=== PATIENT | female | born 1970 | race African-American/Black ===

== ENCOUNTER 2016-07-21 09:01 | Emergency (ER) | payer BC ==
--- NOTE | 2016-07-21 11:03 | ER Document Report ---
ED General - General Chief Complaint: Pain All Over Stated Complaint: CONGESTION Mode of Arrival: Ambulatory Information source: Patient Notes: 45-year-old female presents with complaints of body aches flulike symptoms earache sore throat and productive yellow cough over the past few days. Patient denies any fevers or chills nausea vomiting or diarrhea. She has multiple sick contacts at work TRAVEL OUTSIDE OF THE [place] IN LAST 30 DAYS: No - HPI Onset: Last week Onset/Duration: Persistent Quality of pain: Achy Severity: Mild Pain Level: 1 Associated symptoms: Body/muscle aches, Productive cough, Shortness of breath Exacerbated by: Denies Relieved by: Denies Similar symptoms previously: No Recently seen / treated by doctor: No - Related Data Allergies/Adverse Reactions: No Known Allergies Allergy (Verified 07/21/16 09:10) Past Medical History - Social History Smoking Status: Never Smoker Cigarette use (# per day): No Chew tobacco use (# tins/day): No Smoking Education Provided: No Frequency of alcohol use: None Drug Abuse: None Family History: None Patient has suicidal ideation: No Patient has homicidal ideation: No Pulmonary Medical History: Denies: Hx Tuberculosis Renal/ Medical History: Denies: Hx Peritoneal Dialysis Past Surgical History: Reports: Hx Section - Immunizations Hx Pneumococcal Vaccination: 06/27/00 Review of Systems - Review of Systems Notes: REVIEW OF SYSTEMS: CONSTITUTIONAL : Denies fever, chills, or sweats. Denies recent illness. EENT: Admits to sore throa, ear ache CARDIOVASCULAR: Denies chest pain. Denies palpitations or racing or irregular heart beat. Denies ankle edema. RESPIRATORY: admit sto productive cough GASTROINTESTINAL: Denies abdominal pain or distention. Denies nausea, vomiting , or diarrhea. Denies blood in vomitus, stools, or per rectum. Denies black, tarry stools. Denies constipation. GENITOURINARY: Denies difficulty urinating, painful urination, burning, frequency, blood in urine, or discharge. FEMALE GENITOURINARY: Denies vaginal bleeding, heavy or abnormal periods, irregular periods. Denies vaginal discharge or odor. MUSCULOSKELETAL: Denies back or neck pain or stiffness. Denies joint pain or swelling. SKIN: Denies rash, lesions or sores. HEMATOLOGIC : Denies easy bruising or bleeding. LYMPHATIC: Denies swollen, enlarged glands. NEUROLOGICAL: Denies confusion or altered mental status. Denies passing out or loss of consciousness. Denies dizziness or lightheadedness. Denies headache. Denies weakness or paralysis or loss of use of either side. Denies problems with gait or speech. Denies sensory loss, numbness, or tingling. Denies seizures. PSYCHIATRIC: Denies anxiety or stress. Denies depression, suicidal ideation, or homicidal ideation. ALL OTHER SYSTEMS REVIEWED AND NEGATIVE. Dictation was performed using [email or web address] voice recognition software PHYSICAL EXAMINATION: GENERAL: Well-appearing, well-nourished and in no acute distress. HEAD: Atraumatic, normocephalic. EYES: Pupils equal round and reactive to light, extraocular movements intact, conjunctiva are normal. ENT: Nares patent, oropharynx clear without exudates. Moist mucous membranes. NECK: Normal range of motion, supple without lymphadenopathy LUNGS: Breath sounds clear to auscultation bilaterally and equal. No wheezes rales or rhonchi. after coughing but RUL rhonchi HEART: Regular rate and rhythm without murmurs ABDOMEN: Soft, nontender, nondistended abdomen. No guarding, no rebound. No masses appreciated. Female : deferred Musculoskeletal: Normal range of motion, no pitting or edema. No cyanosis. NEUROLOGICAL: Cranial nerves grossly intact. Normal speech, normal gait. Normal sensory, motor exams PSYCH: Normal mood, normal affect. SKIN: Warm, Dry, normal turgor, no rashes or lesions noted. Physical Exam - Vital signs Vitals: Temp Pulse Resp BP Pulse Ox 98.1 F 90 18 148/83 H 100 07/21/16 09:09 07/21/16 09:09 07/21/16 09:09 07/21/16 09:09 07/21/16 09:09 Course - Re-evaluation Re-evalutation: 07/21/16 11:00 influenza was negative pt will be treated for her productive cough, pt otherwise is stable for discharge 07/21/16 11:19 After performing a Medical Screening Examination, I estimate there is LOW risk for ACUTE CORONARY SYNDROME, RESPIRATORY FAILURE, SEPSIS OR MENINGITIS, thus I consider the discharge disposition reasonable. The patient and I have discussed the diagnosis and risks, and we agree with discharging home with close follow- up. We also discussed returning to the Emergency Department immediately if new or worsening symptoms occur. We have discussed the symptoms which are most concerning (e.g., changing or worsening pain, trouble swallowing or breathing, neck stiffness, fever) that necessitate immediate return. - Vital Signs Vital signs: Temp Pulse Resp BP Pulse Ox 98.1 F 90 18 148/83 H 100 07/21/16 09:09 07/21/16 09:09 07/21/16 09:09 07/21/16 09:09 07/21/16 09:09 Discharge - Discharge Clinical Impression: Productive cough, SOB (shortness of breath), Body aches Condition: Stable Disposition: HOME, SELF-CARE Instructions: Pneumonia ([facility]) Additional Instructions: Follow up with your physician tomorrow for further care or return to the ED IMMEDIATELY if symptoms worsen or new concerns occur Prescriptions: Azithromycin 250 mg PO ASDIR PRN #6 tablet PRN Reason:
[2016-07-21 17:58] VITALS: BP 136/80
== END 2016-07-21 11:45 | disposition home or self-care (01) ==
LOC: ER 09:01
DX: R05 Cough (principal); R06.02 Shortness of breath; M79.1 Myalgia; H92.09 Otalgia, unspecified ear; J02.9 Acute pharyngitis, unspecified
CPT/HCPCS: 87804; 99283

== ENCOUNTER 2016-10-26 21:43 | Observation (INO) | payer BC ==
[2016-10-26 22:54] LABS: ABSOLUTE EOSINOPHILS # (AUTO) 0.1 10^3/uL (0.0-0.6); ABSOLUTE LYMPHOCYTES (AUTO) 2.5 10^3/uL (0.5-4.7); ABSOLUTE MONOCYTES (AUTO) 0.5 10^3/uL (0.1-1.4); ABSOLUTE NEUT (AUTO) 2.9 10^3/uL (1.7-8.2); BASOPHILS % (AUTO) 0.6 % (0-2); HEMATOCRIT 22.2 % (36.0-47.0); LYMPHOCYTES % (AUTO) 41.1 % (13-45); MEAN CORPUSCULAR HEMOGLOBIN 16.8 pg (27.0-33.4); MEAN CORPUSCULAR HGB CONC 28.8 g/dL (32.0-36.0); MONOCYTES % (AUTO) 8.5 % (3-13); RED BLOOD COUNT 3.81 10^6/uL (3.72-5.28); RED CELL DISTRIBUTION WIDTH 22.2 % (11.5-14.0); SEGMENTED NEUTROPHILS % (AUTO) 47.8 % (42-78)
[2016-10-26 22:57] LABS: APPEARANCE,URINE SLIGHTLY-CLOUDY; BILIRUBIN,URINE NEGATIVE (NEGATIVE); GLUCOSE, URINE NEGATIVE (NEGATIVE); KETONES,URINE NEGATIVE (NEGATIVE); LEUKOCYTE ESTERASE,URINE NEGATIVE (NEGATIVE); NITRITE,URINE NEGATIVE (NEGATIVE); PROTEIN,URINE NEGATIVE (NEGATIVE); URINE SPECIFIC GRAVITY 1.015; UROBILINOGEN,URINE NEGATIVE mg/dL (<2.0)
[2016-10-26 22:59] LABS: HEMOGLOBIN 6.4 g/dL (12.0-15.5)
[2016-10-26 23:10] LABS: ANISOCYTOSIS 3+; HYPOCHROMASIA 2+; MICROCYTOSIS 4+; TOXIC GRANULATION SLIGHT
[2016-10-26 23:11] LABS: MEAN CORPUSCULAR VOLUME 58 fl (80-97); OVALOCYTES SLIGHT; TARGET CELLS SLIGHT
[2016-10-26 23:14] LABS: ALANINE AMINOTRANSFERASE 19 U/L (9-52); ALBUMIN 4.5 g/dL (3.5-5.0); ALKALINE PHOSPHATASE 62 U/L (38-126); ANION GAP 15 (5-19); ASPARTATE AMINO TRANSFERASE 21 U/L (14-36); BILIRUBIN,DIRECT 0.1 mg/dL (0.0-0.4); BILIRUBIN,TOTAL 0.3 mg/dL (0.2-1.3); BLOOD UREA NITROGEN 8 mg/dL (7-20); CALCIUM 9.6 mg/dL (8.4-10.2); CARBON DIOXIDE 26 mmol/L (22-30); CHLORIDE 104 mmol/L (98-107); GLUCOSE 99 mg/dL (75-110); POTASSIUM 3.8 mmol/L (3.6-5.0); SODIUM 145.2 mmol/L (137-145); TOTAL PROTEIN 8.1 g/dL (6.3-8.2)
[2016-10-27] MEDS ORDERED: NORMAL SALINE 250 ML IV PRN ×2 (00:08)
--- NOTE | 2016-10-27 00:08 | ER Document Report ---
ED General - General Chief Complaint: General Weakness Stated Complaint: WEAKNESS Mode of Arrival: Ambulatory Information source: Patient Notes: 45 yr old female with hx of dysmenorrhea , admission in 2013 for similar complaints but did not follow with [facility] at that point presents with complaints of weakness lightheadedness and eating ice. Patient currently is on the last day of her menses TRAVEL OUTSIDE OF THE [place] IN LAST 30 DAYS: Yes - [place] [facility] Onset: Other Onset/Duration: Persistent Quality of pain: No pain Severity: Moderate Pain Level: Denies Associated symptoms: Weakness Exacerbated by: Denies Relieved by: Denies Similar symptoms previously: Yes Recently seen / treated by doctor: Yes - Related Data Allergies/Adverse Reactions: No Known Allergies Allergy (Verified 07/21/16 09:10) Past Medical History - Social History Smoking Status: Never Smoker Cigarette use (# per day): No Chew tobacco use (# tins/day): No Smoking Education Provided: No Family History: None Patient has suicidal ideation: No Patient has homicidal ideation: No Pulmonary Medical History: Denies: Hx Tuberculosis Renal/ Medical History: Denies: Hx Peritoneal Dialysis Past Surgical History: Reports: Hx Section - Immunizations Hx Pneumococcal Vaccination: 06/27/00 Review of Systems - Review of Systems Notes: REVIEW OF SYSTEMS: CONSTITUTIONAL : Denies fever, chills, or sweats. Denies recent illness. EENT: Denies eye, ear, throat, or mouth pain or symptoms. Denies nasal or sinus congestion or discharge. Denies throat, tongue, or mouth swelling or difficulty swallowing. CARDIOVASCULAR: Denies chest pain. Denies palpitations or racing or irregular heart beat. Denies ankle edema. RESPIRATORY: Denies cough, cold, or chest congestion. Denies shortness of breath, difficulty breathing, or wheezing. GASTROINTESTINAL: Denies abdominal pain or distention. Denies nausea, vomiting , or diarrhea. Denies blood in vomitus, stools, or per rectum. Denies black, tarry stools. Denies constipation. GENITOURINARY: Denies difficulty urinating, painful urination, burning, frequency, blood in urine, or discharge. FEMALE GENITOURINARY: Admits to vaginal bleeding MUSCULOSKELETAL: Denies back or neck pain or stiffness. Denies joint pain or swelling. SKIN: Denies rash, lesions or sores. HEMATOLOGIC : Denies easy bruising or bleeding. LYMPHATIC: Denies swollen, enlarged glands. NEUROLOGICAL: Admits to weakness PSYCHIATRIC: Denies anxiety or stress. Denies depression, suicidal ideation, or homicidal ideation. ALL OTHER SYSTEMS REVIEWED AND NEGATIVE. Dictation was performed using [employer] voice recognition software PHYSICAL EXAMINATION: GENERAL: Well-appearing, well-nourished and in no acute distress. HEAD: Atraumatic, normocephalic. EYES: Pupils equal round and reactive to light, extraocular movements intact, conjunctiva are normal. ENT: Nares patent, oropharynx clear without exudates. Moist mucous membranes. NECK: Normal range of motion, supple without lymphadenopathy LUNGS: Breath sounds clear to auscultation bilaterally and equal. No wheezes rales or rhonchi. HEART: Regular rate and rhythm without murmurs ABDOMEN: Soft, nontender, nondistended abdomen. No guarding, no rebound. No masses appreciated. Female : deferred Musculoskeletal: Normal range of motion, no pitting or edema. No cyanosis. NEUROLOGICAL: Cranial nerves grossly intact. Normal speech, normal gait. Normal sensory, motor exams PSYCH: Normal mood, normal affect. SKIN: Warm, Dry, normal turgor, no rashes or lesions noted. Physical Exam - Vital signs Vitals: Temp Pulse Resp BP Pulse Ox 99 F 109 H 18 156/86 H 100 10/26/16 22:09 10/26/16 22:09 10/26/16 22:09 10/26/16 22:09 10/26/16 22:09 Course - Re-evaluation Re-evalutation: 10/27/16 00:21 Patient's hemoglobin is 6.4, 2 units have an order for transfusion, patient will be admitted to Dr. Newby - Vital Signs Vital signs: Temp Pulse Resp BP Pulse Ox 99 F 109 H 18 156/86 H 100 10/26/16 22:09 10/26/16 22:09 10/26/16 22:09 10/26/16 22:09 10/26/16 22:09 - Laboratory Result Diagrams: 10/26/16 22:35 10/26/16 22:35 Laboratory results interpreted by me: 10/26/16 10/26/16 10/26/16 22:35 22:35 22:35 Hgb 6.4 L Hct 22.2 L MCV 58 L MCH 16.8 L MCHC 28.8 L RDW 22.2 H Sodium 145.2 H Urine Blood LARGE H Critical Care Note - Critical Care Note Total time excluding time spent on procedures (mins): 35 Comments: 35 minutes of critical care time spent in direct contact evaluating and reevaluating the patient, treating symptoms, reviewing labs and studies and speaking with family and consultants excluding any procedures Discharge - Discharge Clinical Impression: Dysmenorrhea, Weakness, Blood loss anemia Condition: Fair Disposition: ADMITTED INPATIENT Admitting Provider: [facility] Admitted: Medical Floor
[2016-10-27] MEDS ORDERED: ACETAMINOPHEN 325 MG TABLET PO ONE ×2 (02:45→04:15)
[2016-10-27] MEDS ORDERED: DIPHENHYDRAMINE HCL 50 MG/ML VIAL IV ONE (02:45)
[2016-10-27] MEDS ORDERED: ESTROGENS,CONJUGATED 25 MG VIAL ONE (03:39)
[2016-10-27] MEDS: ESTROGENS,CONJUGATED 25 MG VIAL IV SCH ×3 (03:48→18:36)
--- NOTE | 2016-10-27 05:47 | PDOC H&P ---
History of Present Illness Admission Date/PCP: 10/27/16 00:25 Patient complains of: weakness and dizziness as a result of heavy vaginal bleeding that has been intermittent over the last 1 1/2 years. History of Present Illness: KEMI WANG is a 45 year old female Past Medical History LMP: 10-21-16 Gynecological Infection: No Gynecological History Note: as above Obstetrical History: none - c/sections x 3. Pulmonary Medical History: Denies: Tuberculosis Past Surgical History Past Surgical History: Reports: Section - x 3 Social History Smoking Status: Never Smoker Frequency of Alcohol Use: Occasional Hx Recreational Drug Use: No Drugs: None Hx Prescription Drug Abuse: No - Advance Directive Resuscitation Status: Full Code Family History Family History: None Parental Family History Reviewed: Yes Children Family History Reviewed: Yes Sibling(s) Family History Reviewed.: Yes Medication/Allergy Home Medications: No Home Medications 10/27/16 Allergies/Adverse Reactions: No Known Allergies Allergy (Verified 07/21/16 09:10) Physical Exam - Physical Exam Vital Signs: Temp Pulse Resp BP Pulse Ox 98.1 F 85 18 121/75 100 10/27/16 04:57 10/27/16 04:57 10/27/16 04:57 10/27/16 04:57 10/27/16 04:57 Intake & Output 10/25/16 10/26/16 10/27/16 06:59 06:59 06:59 Intake Total 0 Balance 0 General appearance: PRESENT: no acute distress GI/Abdominal exam: PRESENT: soft - obese Assessment & Plan - Diagnosis (1) Abnormal uterine and vaginal bleeding, unspecified Is this a current diagnosis for this admission?: Yes (2) Blood loss anemia Is this a current diagnosis for this admission?: Yes (3) Dysmenorrhea Is this a current diagnosis for this admission?: Yes (4) Weakness Is this a current diagnosis for this admission?: Yes - Time Critical Time spent with patient: Less than 15 minutes Medications reviewed and adjusted accordingly: Yes Anticipated discharge: Home Within: within 24 hours - Inpatient Certification Based on my medical assessment, after consideration of the patient's comorbidities, presenting symptoms, or acuity I expect that the services needed warrant INPATIENT care.: Yes I certify that my determination is in accordance with my understanding of Medicare's requirements for reasonable and necessary INPATIENT services [42 CFR 412.3e].: Yes Medical Necessity: Need Close Monitoring Due to Risk of Patient Decompensation, Need For IV Fluids, Risk of Complication if Not Cared For in Hospital - Plan Summary Plan Summary: will transfuse 3 units and recheck Hgb. IV Premarin to assist with decreasing blood loss. Will get pelvic sono while in hospital to assess uterine size. Will follow up in office and discuss further surgical management for AUB to anemia requiring transfusions.
[2016-10-27] MEDS ORDERED: FUROSEMIDE INJ/PF 20 MG/2 ML SDV IV PRN (11:50)
[2016-10-27 16:51] LABS: PATH REVIEW PATHOLOGIST REVIEWED
[2016-10-27 19:17] LABS: ABSOLUTE BASOPHILS # (AUTO) 0.1 10^3/uL (0.0-0.2); ABSOLUTE EOSINOPHILS # (AUTO) 0.2 10^3/uL (0.0-0.6); ABSOLUTE LYMPHOCYTES (AUTO) 1.7 10^3/uL (0.5-4.7); ABSOLUTE MONOCYTES (AUTO) 0.6 10^3/uL (0.1-1.4); ABSOLUTE NEUT (AUTO) 4.6 10^3/uL (1.7-8.2); BASOPHILS % (AUTO) 1.5 % (0-2); EOSINOPHILS % (AUTO) 2.3 % (0-6); HEMATOCRIT 31.2 % (36.0-47.0); HGB HCT DIFFERENCE -1.5; LYMPHOCYTES % (AUTO) 23.8 % (13-45); MEAN CORPUSCULAR HEMOGLOBIN 21.6 pg (27.0-33.4); MEAN CORPUSCULAR HGB CONC 31.8 g/dL (32.0-36.0); MONOCYTES % (AUTO) 8.5 % (3-13); RED CELL DISTRIBUTION WIDTH 31.8 % (11.5-14.0); SEGMENTED NEUTROPHILS % (AUTO) 63.9 % (42-78); WHITE BLOOD COUNT 7.2 10^3/uL (4.0-10.5)
[2016-10-27 19:19] LABS: HEMOGLOBIN 9.9 g/dL (12.0-15.5)
[2016-10-27 19:20] LABS: MEAN CORPUSCULAR VOLUME 68 fl (80-97)
[2016-10-27 19:36] LABS: ANISOCYTOSIS 3+; HYPOCHROMASIA 1+; MICROCYTOSIS 2+; OVALOCYTES SLIGHT; TARGET CELLS SLIGHT; TOXIC GRANULATION SLIGHT
[2016-10-27] MEDS ORDERED: ACETAMINOPHEN 325 MG TABLET ONE (21:18)
[2016-10-27] MEDS ORDERED: ACETAMINOPHEN 325 MG TABLET PO PRN (21:19)
[2016-10-27] MEDS ORDERED: MEDROXYPROGESTERONE ACET 10 MG TABLET PO ONE (22:00)
[2016-10-28 08:48] VITALS: BP 127/72
[2016-10-28] MEDS ORDERED: MEDROXYPROGESTERONE ACET 10 MG TABLET PO SCH (10:00)
== END 2016-10-28 10:30 | disposition home or self-care (01) ==
LOC: ER 21:43 → EH 10-27 00:25 → INTOOBSV 10-27 00:25 → 2N 10-27 02:00
PROVIDERS: ADMIT Obstetrics & Gynecology; ATTEND Obstetrics & Gynecology
PROC: 30243N1 Transfusion of Nonautologous Red Blood Cells into Central Vein, Percutaneous Approach (ICD-10-PCS; principal; 2016-10-27)
DX: N93.9 Abnormal uterine and vaginal bleeding, unspecified (principal); D50.0 Iron deficiency anemia secondary to blood loss (chronic); N94.6 Dysmenorrhea, unspecified; R53.1 Weakness; D25.9 Leiomyoma of uterus, unspecified; E66.9 Obesity, unspecified; Z68.38 Body mass index [BMI] 38.0-38.9, adult
CPT/HCPCS: 99291; 86900; 86901; 36415 ×2; 36430; 86850; 85025 ×2; 80053; 81001; 86920; 76830; 93976; G0378 ×3; P9016; J1200; J1410; J1940; J3490

== ENCOUNTER 2017-01-06 21:28 | Emergency (ER) | payer BC ==
--- NOTE | 2017-01-06 21:58 | ER Document Report ---
ED Dizziness/Weakness - General Mode of Arrival: Ambulatory Information source: Patient TRAVEL OUTSIDE OF THE [place] IN LAST 30 DAYS: Yes - [place] TRAVELED TO/FROM: [place] - HPI Patient complains to provider of: Dizziness, Weakness Onset: Other - Refer to HPI notes Associated symptoms: Dizzy <KELLY LINDSEY - Last Filed: 01/06/17 21:58> <KIM ROSAS - Last Filed: 01/06/17 23:15> - General Chief Complaint: Dizziness Stated Complaint: DIZZY, POSSIBLE LOW IRON Time Seen by Provider: 01/06/17 21:46 Notes: 46-year-old female presented emergency department for weakness and dizziness. Patient states the symptoms onset yesterday. Patient states she feels like she is going to pass out when she stands up. Patient has a history of anemia and has had previous blood transfusions and has been receiving iron infusions as well. Patient's last blood transfusion was on 10/27/2016 and her last iron transfusion was on 12/27/2016. Patient has been receiving her transfusions at [facility] with Dr. Art. Patient is currently on her menstrual cycle and she states it became heavy yesterday. Patient has no known drug allergies. (KELLY LINDSEY) - Related Data Allergies/Adverse Reactions: No Known Allergies Allergy (Verified 07/21/16 09:10) Past Medical History - General Information source: Patient - Social History Smoking Status: Never Smoker Cigarette use (# per day): No Chew tobacco use (# tins/day): No Frequency of alcohol use: None Drug Abuse: None Family History: None Patient has suicidal ideation: No Patient has homicidal ideation: No - Medical History Medical History: Other - anemia, blood and iron transfusions Past Surgical History: Reports: Hx Section - x 3 - Immunizations Hx Pneumococcal Vaccination: 06/27/00 <KELLY LINDSEY - Last Filed: 01/06/17 21:58> Review of Systems - Review of Systems Constitutional: See HPI, Weakness EENT: No symptoms reported Cardiovascular: See HPI, Dizziness Respiratory: No symptoms reported Gastrointestinal: No symptoms reported Genitourinary: No symptoms reported Female Genitourinary: See HPI, Last menstrual period - current Musculoskeletal: No symptoms reported Skin: No symptoms reported Hematologic/Lymphatic: See HPI, Anemia Neurological/Psychological: No symptoms reported -: Yes All other systems reviewed and negative <KELLY LINDSEY - Last Filed: 01/06/17 21:58> Physical Exam - Vital signs Interpretation: Hypertensive <KELLY LINDSEY - Last Filed: 01/06/17 21:58> <KIM ROSAS - Last Filed: 01/06/17 23:15> - Vital signs Vitals: Temp Pulse Resp BP Pulse Ox 98.1 F 98 18 150/97 H 99 01/06/17 21:35 01/06/17 21:35 01/06/17 21:35 01/06/17 21:35 01/06/17 21:35 - Notes Notes: GENERAL: Alert, interacts well. Patient has increased dizziness with moving her head up/down/left/right. No acute distress. HEAD: Normocephalic, atraumatic. EYES: Appear normal, conjunctiva is not pale. Pupils equal, round, and reactive to light. Extraocular movements intact, no nystagmus. ENT: Moist mucus membranes, tongue midline. NECK: Full range of motion. Supple. Trachea midline. LUNGS: Clear to auscultation bilaterally, no wheezes, rales, or rhonchi. No respiratory distress. HEART: Regular rate and rhythm. No murmurs, gallops, or rubs. ABDOMEN: Soft, non-tender. Non-distended. Normal bowel sounds. EXTREMITIES: Moves all 4 extremities spontaneously. Normal strength. No edema. NEUROLOGICAL: Alert and oriented x3. Normal speech. No focal neurological deficits. GSC 15. PSYCH: Normal affect, normal mood. SKIN: Warm, dry, normal turgor. No rashes or lesions noted. (KELLY LINDSEY) Course <KELLY LINDSEY - Last Filed: 01/06/17 21:58> - Laboratory Result Diagrams: 01/06/17 22:15 01/06/17 22:15 <KIM ROSAS - Last Filed: 01/06/17 23:15> - Re-evaluation Re-evalutation: 01/06/17 23:12 Patient reports the dizziness has improved since taking the Antivert. I had her look about rapidly and she noticed there is still some dizziness but is considerably better than earlier. Her hemoglobin today is 11.6, this is much higher than it has ever been recorded here. (KIM ROSAS) - Vital Signs Vital signs: Temp Pulse Resp BP Pulse Ox 98.1 F 98 18 150/97 H 99 01/06/17 21:35 01/06/17 21:35 01/06/17 21:35 01/06/17 21:35 01/06/17 21:35 - Laboratory Laboratory results interpreted by me: 01/06/17 01/06/17 22:15 22:15 Hgb 11.6 L MCH 26.7 L MCHC 31.5 L RDW 24.8 H Total Protein 8.4 H Discharge <KELLY LINDSEY - Last Filed: 01/06/17 21:58> <KIM ROSAS - Last Filed: 01/06/17 23:15> - Discharge Clinical Impression: Vertigo Heavy menstrual bleeding Qualifiers: Menorrahagia type: with regular cycle Qualified Code(s): N92.0 - Excessive and frequent menstruation with regular cycle Condition: Stable Disposition: HOME, SELF-CARE Additional Instructions: Vertigo: You have experienced an episode of vertigo -- a whirling dizziness which may be accompanied by nausea and vomiting or staggering. Vertigo is often caused by an irritation of the inner ear, in which case it is called labyrinthitis. It can also be a symptom of a degenerating inner ear, nerve damage, or brain injury. Your physician has evaluated you to determine whether any further testing is necessary. Vertigo is often treated with dramamine or meclizine. These medications are helpful, but stronger medication may be needed if you are vomiting. Rest in bed. You should not drive or operate machinery until completely better. It may take one to three weeks for recovery. If there are new symptoms, such as decreased hearing or vision, severe headache, weakness or faintness, or confusion, call the physician. TAKE THE MEDICATIONS PRESCRIBED. REST. FOLLOW UP WITH A LOCAL MEDICAL DOCTOR IF NOT IMPROVING. RETURN TO THE EMERGENCY ROOM IF ANY NEW OR WORSENING SYMPTOMS. Prescriptions: Meclizine HCl [Antivert 25 mg Tablet] 25 mg PO TID PRN #25 tablet PRN Reason: Scribe Attestation: 01/06/17 23:15 I personally performed the services described in the documentation, reviewed and edited the documentation which was dictated to the scribe in my presence, and it accurately records my words and actions. (KIM ROSAS) Scribe Documentation - Scribe Written by Scribe:: Bruce Llamas, 01/06/2017 22:05 acting as scribe for :: Aranza <KELLY LINDSEY - Last Filed: 01/06/17 21:58>
[2017-01-06] MEDS ORDERED: MECLIZINE HCL 25 MG TABLET PO ONE (21:59)
[2017-01-06 22:36] LABS: ABSOLUTE EOSINOPHILS # (AUTO) 0.2 10^3/uL (0.0-0.6); ABSOLUTE LYMPHOCYTES (AUTO) 1.4 10^3/uL (0.5-4.7); ABSOLUTE MONOCYTES (AUTO) 0.6 10^3/uL (0.1-1.4); BASOPHILS % (AUTO) 0.7 % (0-2); EOSINOPHILS % (AUTO) 2.9 % (0-6); HEMATOCRIT 36.8 % (36.0-47.0); HEMOGLOBIN 11.6 g/dL (12.0-15.5); MEAN CORPUSCULAR HEMOGLOBIN 26.7 pg (27.0-33.4); MEAN CORPUSCULAR HGB CONC 31.5 g/dL (32.0-36.0); MEAN CORPUSCULAR VOLUME 85 fl (80-97); MONOCYTES % (AUTO) 8.9 % (3-13); RED BLOOD COUNT 4.35 10^6/uL (3.72-5.28); RED CELL DISTRIBUTION WIDTH 24.8 % (11.5-14.0); SEGMENTED NEUTROPHILS % (AUTO) 64.5 % (42-78); WHITE BLOOD COUNT 6.3 10^3/uL (4.0-10.5)
[2017-01-06 22:47] LABS: ALANINE AMINOTRANSFERASE 31 U/L (9-52); ALBUMIN 4.3 g/dL (3.5-5.0); ALKALINE PHOSPHATASE 74 U/L (38-126); ANION GAP 11 (5-19); ASPARTATE AMINO TRANSFERASE 21 U/L (14-36); BILIRUBIN,DIRECT 0.3 mg/dL (0.0-0.4); BILIRUBIN,TOTAL 0.3 mg/dL (0.2-1.3); BLOOD UREA NITROGEN 10 mg/dL (7-20); CALCIUM 9.1 mg/dL (8.4-10.2); CARBON DIOXIDE 27 mmol/L (22-30); CHLORIDE 106 mmol/L (98-107); CREATININE RESULT 0.72 mg/dL (0.52-1.25); GLUCOSE 94 mg/dL (75-110); POTASSIUM 3.6 mmol/L (3.6-5.0); SODIUM 143.8 mmol/L (137-145); TOTAL PROTEIN 8.4 g/dL (6.3-8.2)
[2017-01-06 22:57] LABS: HYPOCHROMASIA SLIGHT
[2017-01-06 22:58] LABS: ANISOCYTOSIS 3+; OVALOCYTES SLIGHT; TARGET CELLS SLIGHT; TEAR DROP CELLS SLIGHT
[2017-01-06 23:00] LABS: POIKILOCYTOSIS SLIGHT
[2017-01-07 00:23] VITALS: BP 115/80
== END 2017-01-06 23:35 | disposition home or self-care (01) ==
LOC: ER 21:28
DX: N92.0 Excessive and frequent menstruation with regular cycle (principal); R42 Dizziness and giddiness; R53.1 Weakness
CPT/HCPCS: 36415; 80053; 85025; 86850; 86900; 86901; 99284

== ENCOUNTER 2017-01-27 09:05 | Inpatient (IN) | payer BC ==
[2017-01-19 10:32] LABS: HEMATOCRIT 36.3 % (36.0-47.0); HEMOGLOBIN 12.2 g/dL (12.0-15.5); HGB HCT DIFFERENCE 0.3; MEAN CORPUSCULAR HEMOGLOBIN 29.4 pg (27.0-33.4); MEAN CORPUSCULAR HGB CONC 33.7 g/dL (32.0-36.0); MEAN CORPUSCULAR VOLUME 87 fl (80-97); RED CELL DISTRIBUTION WIDTH 19.9 % (11.5-14.0)
[2017-01-19 10:38] LABS: APPEARANCE,URINE CLEAR; BILIRUBIN,URINE NEGATIVE (NEGATIVE); GLUCOSE, URINE NEGATIVE (NEGATIVE); KETONES,URINE NEGATIVE (NEGATIVE); LEUKOCYTE ESTERASE,URINE NEGATIVE (NEGATIVE); NITRITE,URINE NEGATIVE (NEGATIVE); PROTEIN,URINE NEGATIVE (NEGATIVE); URINE SPECIFIC GRAVITY 1.021; UROBILINOGEN,URINE NEGATIVE mg/dL (<2.0)
[2017-01-19 11:03] LABS: ALANINE AMINOTRANSFERASE 26 U/L (9-52); ALBUMIN 4.1 g/dL (3.5-5.0); ALKALINE PHOSPHATASE 76 U/L (38-126); ANION GAP 10 (5-19); ASPARTATE AMINO TRANSFERASE 26 U/L (14-36); BILIRUBIN,DIRECT 0.3 mg/dL (0.0-0.4); BILIRUBIN,TOTAL 0.4 mg/dL (0.2-1.3); BLOOD UREA NITROGEN 11 mg/dL (7-20); CALCIUM 9.2 mg/dL (8.4-10.2); CARBON DIOXIDE 25 mmol/L (22-30); CHLORIDE 106 mmol/L (98-107); GLUCOSE 74 mg/dL (75-110); POTASSIUM 3.9 mmol/L (3.6-5.0); SODIUM 141.2 mmol/L (137-145); TOTAL PROTEIN 7.7 g/dL (6.3-8.2)
[2017-01-19 11:15] LABS: RED BLOOD COUNT 4.16 10^6/uL (3.72-5.28)
[~2017-01-27 09:05] MED LIST: CEFAZOLIN 1 GM/D5W RTU 1 GM/50 ML RTUPB IV PRN; DEXAMETHASONE SOD PHOSPHATE INJ 4 MG/1 ML VIAL ONE; GLYCOPYRROLATE INJ 0.4 MG/2 ML VIAL ONE; LIDOCAINE 2% INJ-PF (20 MG/ML) 10 ML AMPUL ONE; ONDANSETRON HCL INJ/PF 4 MG/2 ML SDV ONE; RINGERS SOLUTION,LACTATED 1,000 ML IV PRN; ROCURONIUM BROMIDE INJ 50 MG/5 ML VIAL IV ONE; SUCCINYLCHOLINE CHLORIDE INJ 200 MG/10 ML VIAL ONE; VECURONIUM BROMIDE INJ 10 MG VIAL IV ONE
[2017-01-27] MEDS ORDERED: FENTANYL CITRATE INJ/PF 250 MCG/5 ML AMPULE ONE (12:13)
[2017-01-27] MEDS ORDERED: MIDAZOLAM 2 MG/2 ML INJ ONE (12:13)
[2017-01-27] MEDS ORDERED: PROPOFOL INJ 200 MG/20 ML VIAL IV ONE (12:14)
[2017-01-27] MEDS ORDERED: EPHEDRINE SULFATE INJ 50 MG/1 ML AMPULE ONE (12:14)
[2017-01-27] MEDS ORDERED: ACETAMINOPHEN 100 ML IV ONE (12:14)
[2017-01-27] MEDS ORDERED: MORPHINE SULFATE 10 MG/ML INJ ONE (12:15)
[2017-01-27] MEDS ORDERED: FENTANYL CITRATE INJ/PF 100 MCG/2 ML AMPUL IV PRN ×3 (14:33)
[2017-01-27] MEDS ORDERED: DIPHENHYDRAMINE HCL 50 MG/ML VIAL IV PRN (14:33)
[2017-01-27] MEDS ORDERED: PROMETHAZINE HCL INJ 25 MG/1 ML VIAL IV PRN (14:33)
[2017-01-27] MEDS ORDERED: MORPHINE SULFATE 10 MG/ML INJ IV PRN (14:33)
[2017-01-27] MEDS ORDERED: HYDROMORPHONE HCL INJ/PF 2 MG/ML AMPULE ONE (14:54)
[2017-01-27] MEDS ORDERED: ONDANSETRON HCL INJ/PF 4 MG/2 ML SDV ONE (17:22)
[2017-01-27] MEDS ORDERED: RINGERS SOLUTION,LACTATED 1,000 ML IV PRN (17:44)
--- NOTE | 2017-01-27 18:47 | OPERATIVE REPORT E ---
Operative Report NAME: KEMI WANG : 1970 AGE: 46Y DATE OF SURGERY: 01/27/2017 ROOM: PREOPERATIVE DIAGNOSES: 1. Abnormal uterine bleeding. 2. Anemia. 3. Chronic pelvic pain and pelvic adhesive disease. POSTOPERATIVE DIAGNOSES: 1. Abnormal uterine bleeding. 2. Anemia. 3. Chronic pelvic pain and pelvic adhesive disease. OPERATION: Total abdominal hysterectomy with right salpingo-oophorectomy and left salpingectomy. SURGEON: IZA POSADAS M.D. PRE OWNED SALES MANAGER: ALEX CAMACHO D.O. ANESTHESIA: Dr. Christie with general. FINDINGS: Enlarged fibroid uterus, enlarged to approximately 18 weeks' size. Significant pelvic wall adhesions of the uterus to the anterior abdominopelvic wall as well as significant adhesions of the right ovary necessitating its removal. Normal cervix. Dilated left fallopian tube. Normal left ovary. ESTIMATED BLOOD LOSS: 400 mL. TISSUE REMOVED OR ALTERED: Specimens removed were the uterus, fallopian tubes, and right ovary. PROCEDURE IN DETAIL: The patient was taken to the operating room, prepared and draped in a normal sterile fashion in the dorsal lithotomy position to attempt a laparoscopic-assisted hysterectomy. Under sterile conditions, a Rogel catheter was placed to gravity and a sterile speculum was placed in the vagina, and the cervix was grasped and dilated to accommodate a medium V-care which was placed. The gloves were changed, and then attention was then turned to the upper portion of the case where an umbilical skin incision was made and carried through to the underlying layer of fascia With Huynh's. The fascia was grasped and incised. With Huynh's as well, it extended laterally to accommodate a GelPort. A GelPort was placed, and the abdomen was insufflated with approximately 2 liters of CO2 gas. The chamber was introduced through the GelPort and with the above findings noted. Once the size of the uterus was assessed completely and the extent of the adhesions of the uterus to the rectus muscle, it was decided that an open case would be performed, so the abdomen was deflated and the GelPort was removed without difficulty. The patient was then repositioned supine and draped once more. The scalpel was used to score the skin following the patient's previous line, and this was carried through to the underlying layer of fascia with the same scalpel. The fascia was found to be extremely scarred as well and very, very tough to manage. The Huynh scissors were introduced to extend the fascia as best we could, and then this fascia was dissected from the rectus muscle with a Bovie until some type of midline could be identified. In the midline, we carefully layered the division of the midline using the Bovie as well as some blunt dissection in order to enter the peritoneal cavity. The peritoneal cavity was identified and then tented up and entered sharply with Metzenbaum's. The peritoneum was divided, and the bowel was held away using moist laparotomy sponges, and the uterus was identified and grasped with a towel clip for manipulation. I then called for Dr. Camacho to assist. Due to the extensiveness of the adhesions noted, I felt that another pair of hands would be beneficial. At this point, we began careful dissection of the right ovary and fallopian tube, and the right fallopian tube was removed using Huynh's after being tied off with an #0 Vicryl pop off. However, it was then noted the extensiveness of adhesions around this right ovary, and therefore the bleeding risk and the extensiveness of the adhesions, the right ovary was sacrificed by placing a LigaSure at the IP ligament and dividing the right ovary from its pedicle. Then turned our attention to the left adnexa. The left round ligament was identified, and this was transected using the LigaSure, and a window was created in the broad ligament to divide the utero-ovarian ligament from the uterus, and this was also done with 2 Loraine clamps and transected with Huynh's. The pedicle was then tied off with #0-Vicryl pop off. We then continued skeletonization of the uterine arteries using the LigaSure and blunt dissection as needed. We turned our attention then to the adhesions of the uterus to the anterior abdominal wall, taking care to watch for the bladder. These adhesions were taken down sharply with the Bovie and gentle traction as well as some gentle blunt dissection. Then continued with transection of the uterine arteries bilaterally using the LigaSure, doing our best to maintain hemostasis. The cervix was identified, and this was skeletonized as well using the LigaSure until we were underneath the cervix. Two sharply curved Loraine clamps were placed just beneath the cervix for the vaginal cuff. The uterus was then amputated from the cervix to allow for easier visualization. This was done with a 10-blade scalpel, and the cervix was grasped at its stump using two Allis clamps. The cervix was then transected using Yifan's following the guide of the previously placed right-angle clamps. The vaginal cuff was then closed with [id number] interrupted sutures of #0-Vicryl pop offs with good hemostasis. The peritoneal cavity was then copiously irrigated, and any bleeding was addressed with a Bovie or a stitch as needed. The sutures were cut at the vaginal cuff, and the fascia was closed with #0-Vicryl and the subcutaneous layer was then closed with plain cat gut and the skin was closed with willie. I then closed the fascia in a similar fashion at the umbilicus using #0-Vicryl and closing the skin with willie. The patient tolerated the procedure well. Sponge, lap, and needle counts were correct x2, and the patient was taken to recovery in stable condition. DICTATING PHYSICIAN: IZA POSADAS M.D. [id number] PHY#: [id number] ID: [id number] JOB#: [id number] ACCT: [id number] cc:IZA POSADAS M.D. >
[2017-01-27] MEDS: IBUPROFEN 800 MG TABLET PO PRN (20:03)
[2017-01-27] MEDS: OXYCODONE-ACETAMINOPHEN 5-325 MG TABLET PO PRN (21:23)
[2017-01-27] MEDS: ACETAMINOPHEN 100 ML IV SCH (22:31)
[2017-01-27] MEDS: KETOROLAC TROMETHAMINE INJ/PF 30 MG/1 ML SDV INJ SCH (22:40)
[2017-01-27] MEDS: MORPHINE SULFATE 10 MG/ML INJ IV PRN (23:54)
[2017-01-28] MEDS: IBUPROFEN 800 MG TABLET PO PRN (01:08)
[2017-01-28] MEDS: OXYCODONE-ACETAMINOPHEN 5-325 MG TABLET PO PRN ×3 (04:18→23:39)
[2017-01-28 05:38] LABS: HEMATOCRIT 28.7 % (36.0-47.0); HEMOGLOBIN 9.7 g/dL (12.0-15.5); HGB HCT DIFFERENCE 0.4; MEAN CORPUSCULAR HEMOGLOBIN 29.5 pg (27.0-33.4); MEAN CORPUSCULAR HGB CONC 33.9 g/dL (32.0-36.0); MEAN CORPUSCULAR VOLUME 87 fl (80-97); RED BLOOD COUNT 3.29 10^6/uL (3.72-5.28); WHITE BLOOD COUNT 9.3 10^3/uL (4.0-10.5)
[2017-01-28] MEDS: KETOROLAC TROMETHAMINE INJ/PF 30 MG/1 ML SDV INJ SCH ×2 (05:54→14:00)
[2017-01-28] MEDS: ACETAMINOPHEN 100 ML IV SCH (05:54)
[2017-01-28] MEDS ORDERED: DEXAMETHASONE SOD PHOSPHATE INJ 4 MG/1 ML VIAL ONE (08:08)
[2017-01-28] MEDS ORDERED: GLYCOPYRROLATE INJ 0.4 MG/2 ML VIAL ONE (08:08)
[2017-01-28] MEDS ORDERED: SUCCINYLCHOLINE CHLORIDE INJ 200 MG/10 ML VIAL ONE (08:08)
[2017-01-28] MEDS ORDERED: ROCURONIUM BROMIDE INJ 50 MG/5 ML VIAL IV ONE (08:08)
[2017-01-28] MEDS ORDERED: ONDANSETRON HCL INJ/PF 4 MG/2 ML SDV ONE (08:08)
[2017-01-28] MEDS ORDERED: NEOSTIGMINE METHYLSULFATE 10 MG/10 ML VIAL ONE (08:08)
[2017-01-28] MEDS: MORPHINE SULFATE 10 MG/ML INJ IV PRN (11:16)
--- NOTE | 2017-01-28 12:12 | PDOC PROGRESS REPORT ---
Subjective Progress Note for:: 01/28/17 Subjective:: called to pt's bs for evaluation of bleeding from incision. Per Dr. Kaiser, approx 60-80 cc of dark blood oozed from incision after saturated op site was removed. Bleeding had slowed just prior to my arrival. one staple was removed as it was falling off. Physical Exam - Physical Exam Vital Signs: Temp Pulse Resp BP Pulse Ox 98.5 F 114 H 16 127/82 H 100 01/28/17 04:10 01/28/17 04:10 01/28/17 04:10 01/28/17 04:10 01/28/17 04:10 Intake & Output 01/27/17 01/28/17 01/29/17 06:59 06:59 06:59 Intake Total 6050 320 Output Total 4750 300 Balance 1300 20 General appearance: PRESENT: no acute distress, cooperative Head exam: PRESENT: atraumatic GI/Abdominal exam: PRESENT: soft, tenderness, other - incision with moderate oozing on left side of incision. oozing of darkened blood. Result Laboratory Results: 01/28/17 05:11 01/19/17 10:00 01/28/17 05:11 WBC 9.3 RBC 3.29 L Hgb 9.7 L Hct 28.7 L MCV 87 MCH 29.5 MCHC 33.9 RDW 17.0 H Plt Count 231 Assessment & Plan - Diagnosis (1) Abnormal uterine and vaginal bleeding, unspecified Is this a current diagnosis for this admission?: Yes (2) Blood loss anemia Is this a current diagnosis for this admission?: Yes (3) Dysmenorrhea Is this a current diagnosis for this admission?: Yes (4) Weakness Is this a current diagnosis for this admission?: Yes - Time Time Spent with patient: 15-24 minutes Critical Time spent with patient: 15-24 minutes Anticipated discharge: Other - Inpatient Certification Based on my medical assessment, after consideration of the patient's comorbidities, presenting symptoms, or acuity I expect that the services needed warrant INPATIENT care.: Yes I certify that my determination is in accordance with my understanding of Medicare's requirements for reasonable and necessary INPATIENT services [42 CFR 412.3e].: Yes Medical Necessity: Need Close Monitoring Due to Risk of Patient Decompensation, Need for Pain Control, Need for Surgery - Plan Summary Plan Summary: pressure dressing applied and will monitor if pressure able to stop what is believed to be a interrupter vessel between muscle and fascia. if bleeding does not improve may need to take for surgical intervention to tie off or coagulate vessel and place a ANIL drain. this was discussed with pt who voices understanding. make NPO for now until reassured that bleeding is under control.
[2017-01-28] MEDS ORDERED: ONDANSETRON HCL INJ/PF 4 MG/2 ML SDV IV ONE (14:00)
[2017-01-28] MEDS ORDERED: CEFAZOLIN SODIUM 2 GM in DEXTROSE 5%-WATER 100 ML IV PRN (14:45)
[2017-01-28 15:57] LABS: HEMOGLOBIN 9.2 g/dL (12.0-15.5); HGB HCT DIFFERENCE 0.6; MEAN CORPUSCULAR HEMOGLOBIN 29.6 pg (27.0-33.4); MEAN CORPUSCULAR HGB CONC 33.9 g/dL (32.0-36.0); MEAN CORPUSCULAR VOLUME 87 fl (80-97); RED BLOOD COUNT 3.09 10^6/uL (3.72-5.28); RED CELL DISTRIBUTION WIDTH 16.5 % (11.5-14.0); WHITE BLOOD COUNT 9.8 10^3/uL (4.0-10.5)
[2017-01-28] MEDS ORDERED: FENTANYL CITRATE INJ/PF 250 MCG/5 ML AMPULE ONE (18:11)
[2017-01-28] MEDS ORDERED: MIDAZOLAM 2 MG/2 ML INJ ONE (18:11)
[2017-01-28] MEDS ORDERED: PROPOFOL INJ 200 MG/20 ML VIAL IV ONE (18:11)
[2017-01-28] MEDS ORDERED: MORPHINE SULFATE 10 MG/ML INJ ONE (18:12)
[2017-01-28] MEDS: CEFAZOLIN SODIUM 2 GM in DEXTROSE 5%-WATER 100 ML IV PRN ×2 (18:15→22:07)
[2017-01-28] MEDS ORDERED: PROMETHAZINE HCL INJ 25 MG/1 ML VIAL IV PRN ×2 (18:44)
[2017-01-28] MEDS ORDERED: DIPHENHYDRAMINE HCL 50 MG/ML VIAL IV PRN (18:44)
[2017-01-28] MEDS ORDERED: FENTANYL CITRATE INJ/PF 100 MCG/2 ML AMPUL IV PRN ×3 (18:44)
[2017-01-28] MEDS ORDERED: MORPHINE SULFATE 10 MG/ML INJ IV PRN ×2 (18:44→22:25)
[2017-01-28] MEDS ORDERED: OXYCODONE-ACETAMINOPHEN 5-325 MG TABLET PO PRN ×2 (18:44)
[2017-01-28] MEDS ORDERED: MEPERIDINE HCL/PF INJ 25 MG/1 ML DISP.SYRIN IV PRN (18:44)
[2017-01-28] MEDS: BUPIVACAINE HCL 0.25% /EPINEPHRINE INJ/PF 30 ML SDV ONE ×2 (18:47→19:16)
[2017-01-28] MEDS ORDERED: MICROFIBRILLAR COLLAGEN 1 GM PACK TP ONE (18:56)
[2017-01-28] MEDS ORDERED: MICROFIBRILLAR COLLAGEN 1 GM PACK ONE (18:57)
[2017-01-28] MEDS ORDERED: METOCLOPRAMIDE HCL INJ/PF 10 MG/2 ML SDV ONE (19:48)
[2017-01-28] MEDS ORDERED: IBUPROFEN 800 MG TABLET PO PRN ×2 (21:38→22:24)
[2017-01-28] MEDS ORDERED: RINGERS SOLUTION,LACTATED 1,000 ML IV PRN (22:26)
--- NOTE | 2017-01-29 09:57 | PDOC PROGRESS REPORT ---
Subjective Progress Note for:: 01/29/17 Subjective:: s/p GOLDIE w/ RSO POD #2 and exploratory lap POD #1 done sec to post op bleeding performed successfully. feeliing "much better" today. voiding, tolerating regular diet, +flatus. no nausea/vomiting. Physical Exam - Physical Exam Vital Signs: Temp Pulse Resp BP Pulse Ox 98.6 F 94 18 134/80 H 98 01/29/17 07:40 01/29/17 07:40 01/29/17 07:40 01/29/17 07:40 01/29/17 07:40 Intake & Output 01/28/17 01/29/17 01/30/17 06:59 06:59 06:59 Intake Total 6050 2120 Output Total 4750 3950 Balance 1300 -1830 General appearance: PRESENT: no acute distress, cooperative GI/Abdominal exam: PRESENT: soft - incision c/d/intact with minimal old blood on op site. no fresh/active bleeding. Result Laboratory Results: 01/28/17 15:34 01/19/17 10:00 01/28/17 15:34 WBC 9.8 RBC 3.09 L Hgb 9.2 L Hct 27.0 L MCV 87 MCH 29.6 MCHC 33.9 RDW 16.5 H Plt Count 214 Assessment & Plan - Diagnosis (1) Abnormal uterine and vaginal bleeding, unspecified Is this a current diagnosis for this admission?: Yes (2) Blood loss anemia Is this a current diagnosis for this admission?: Yes (3) Dysmenorrhea Is this a current diagnosis for this admission?: Yes (4) Weakness Is this a current diagnosis for this admission?: Yes - Inpatient Certification Based on my medical assessment, after consideration of the patient's comorbidities, presenting symptoms, or acuity I expect that the services needed warrant INPATIENT care.: Yes I certify that my determination is in accordance with my understanding of Medicare's requirements for reasonable and necessary INPATIENT services [42 CFR 412.3e].: Yes Medical Necessity: Need Close Monitoring Due to Risk of Patient Decompensation, Need for Pain Control, Risk of Complication if Not Cared For in Hospital - Plan Summary Plan Summary: will continue to monitor for next 24 hours. if remains stable and no further bleeding will d/c in AM with regular instructions.
[2017-01-29 12:03] LABS: HEMATOCRIT 24.6 % (36.0-47.0); HEMOGLOBIN 8.3 g/dL (12.0-15.5); HGB HCT DIFFERENCE 0.3; MEAN CORPUSCULAR HEMOGLOBIN 29.3 pg (27.0-33.4); MEAN CORPUSCULAR HGB CONC 33.6 g/dL (32.0-36.0); MEAN CORPUSCULAR VOLUME 87 fl (80-97); RED BLOOD COUNT 2.82 10^6/uL (3.72-5.28); RED CELL DISTRIBUTION WIDTH 16.4 % (11.5-14.0); WHITE BLOOD COUNT 11.4 10^3/uL (4.0-10.5)
[2017-01-29] MEDS: OXYCODONE-ACETAMINOPHEN 5-325 MG TABLET PO PRN ×2 (14:56→18:30)
[2017-01-29] MEDS: SIMETHICONE 80 MG TAB.CHEW PO PRN (22:15)
[2017-01-30] MEDS: OXYCODONE-ACETAMINOPHEN 5-325 MG TABLET PO PRN (01:40)
[2017-01-30] MEDS: SIMETHICONE 80 MG TAB.CHEW PO PRN (08:27)
--- NOTE | 2017-01-30 09:07 | PDOC DISCHARGE SUMMARY ---
General - Admit/Disc Date/PCP Admission Date/Primary Care Provider: 01/27/17 09:05 Discharge Date: 01/30/17 - Discharge Diagnosis (1) Abnormal uterine and vaginal bleeding, unspecified Is this a current diagnosis for this admission?: Yes (2) Blood loss anemia Is this a current diagnosis for this admission?: Yes (3) Dysmenorrhea Is this a current diagnosis for this admission?: Yes (4) Weakness Is this a current diagnosis for this admission?: Yes - Additional Information Resuscitation Status: Full Code Home Medications: No Home Medications 01/19/17 History of Present Illness History of Present Illness: KEMI WANG is a 46 year old female Hospital Course Hospital Course: underwent GOLDIE RSO and then had ex lap for Post op bleeding next day. Pt is doing very well. +flatus, no n/v. ambulating well. Physical Exam - Physical Exam Vital Signs: Temp Pulse Resp BP Pulse Ox 98.3 F 85 15 127/84 H 96 01/30/17 08:12 01/30/17 08:12 01/30/17 08:12 01/30/17 08:12 01/30/17 08:12 Intake & Output 01/29/17 01/30/17 01/31/17 06:59 06:59 06:59 Intake Total 2120 990 Output Total 3950 Balance -1830 990 General appearance: PRESENT: no acute distress GI/Abdominal exam: PRESENT: soft, tenderness - tenderness at incision sites. minimal old drainage on dressing. Result Laboratory Results: 01/29/17 11:32 01/19/17 10:00 01/29/17 11:32 WBC 11.4 H RBC 2.82 L Hgb 8.3 L Hct 24.6 L MCV 87 MCH 29.3 MCHC 33.6 RDW 16.4 H Plt Count 223 Plan Discharge Plan: discharge home with scheduled f/u in office on
[2017-01-30 10:36] VITALS: BP 123/74
== END 2017-01-30 11:10 | disposition home or self-care (01) | DRG 743 ==
LOC: 2N 09:05 → OROUT 09:05 → EDSTATUS 11:00 → OROUT 18:14 → 2N 18:14 → EDSTATUS 01-28 11:00 → 2N 01-28 13:22 → OROUT 01-28 13:22 → 2N 01-28 13:24 → UNDOADMIN 01-28 13:24
PROVIDERS: ADMIT Obstetrics & Gynecology; ATTEND Obstetrics & Gynecology
PROC: 0UTC0ZZ Resection of Cervix, Open Approach (ICD-10-PCS; 2017-01-27)
PROC: 0UB70ZZ Excision of Bilateral Fallopian Tubes, Open Approach (ICD-10-PCS; 2017-01-27)
PROC: 0UT00ZZ Resection of Right Ovary, Open Approach (ICD-10-PCS; 2017-01-27)
PROC: 0UT90ZZ Resection of Uterus, Open Approach (ICD-10-PCS; principal; 2017-01-27 11:00)
DX: D25.1 Intramural leiomyoma of uterus (principal); N93.8 Other specified abnormal uterine and vaginal bleeding; N94.6 Dysmenorrhea, unspecified; N73.6 Female pelvic peritoneal adhesions (postinfective); D50.9 Iron deficiency anemia, unspecified; N92.6 Irregular menstruation, unspecified; Z79.899 Other long term (current) drug therapy
CPT/HCPCS: 36415; 80053; 81001; 81025; 840; 85027; 85610; 85730; 86850; 86900; 86901; 88307; J0131; J0330; J0690; J1100; J1170; J1885; J2250; J2270; J2405; J2704; J2765; J3010; J3490; J7120

== ENCOUNTER 2017-05-11 21:41 | Emergency (ER) | payer BC ==
[2017-05-11 23:01] LABS: ABSOLUTE EOSINOPHILS # (AUTO) 0.1 10^3/uL (0.0-0.6); ABSOLUTE LYMPHOCYTES (AUTO) 2.5 10^3/uL (0.5-4.7); ABSOLUTE MONOCYTES (AUTO) 0.5 10^3/uL (0.1-1.4); ABSOLUTE NEUT (AUTO) 4.5 10^3/uL (1.7-8.2); BASOPHILS % (AUTO) 0.5 % (0-2); EOSINOPHILS % (AUTO) 1.6 % (0-6); HEMATOCRIT 41.2 % (36.0-47.0); HEMOGLOBIN 14.1 g/dL (12.0-15.5); HGB HCT DIFFERENCE 1.1; LYMPHOCYTES % (AUTO) 32.4 % (13-45); MEAN CORPUSCULAR HEMOGLOBIN 28.2 pg (27.0-33.4); MEAN CORPUSCULAR HGB CONC 34.2 g/dL (32.0-36.0); MEAN CORPUSCULAR VOLUME 82 fl (80-97); MONOCYTES % (AUTO) 6.7 % (3-13); RED CELL DISTRIBUTION WIDTH 14.9 % (11.5-14.0); SEGMENTED NEUTROPHILS % (AUTO) 58.8 % (42-78); WHITE BLOOD COUNT 7.6 10^3/uL (4.0-10.5)
[2017-05-11 23:17] LABS: APPEARANCE,URINE SLIGHTLY-CLOUDY; BILIRUBIN,URINE NEGATIVE (NEGATIVE); GLUCOSE, URINE NEGATIVE (NEGATIVE); KETONES,URINE NEGATIVE (NEGATIVE); LEUKOCYTE ESTERASE,URINE MODERATE (NEGATIVE); NITRITE,URINE NEGATIVE (NEGATIVE); PROTEIN,URINE NEGATIVE (NEGATIVE)
[2017-05-11 23:18] LABS: ALANINE AMINOTRANSFERASE 29 U/L (9-52); ALBUMIN 4.7 g/dL (3.5-5.0); ALKALINE PHOSPHATASE 88 U/L (38-126); ANION GAP 13 (5-19); ASPARTATE AMINO TRANSFERASE 18 U/L (14-36); BILIRUBIN,DIRECT 0.4 mg/dL (0.0-0.4); BILIRUBIN,TOTAL 0.4 mg/dL (0.2-1.3); BLOOD UREA NITROGEN 8 mg/dL (7-20); CARBON DIOXIDE 26 mmol/L (22-30); CHLORIDE 107 mmol/L (98-107); CREATININE RESULT 0.73 mg/dL (0.52-1.25); GLUCOSE 85 mg/dL (75-110); LIPASE 119.1 U/L (23-300); POTASSIUM 3.8 mmol/L (3.6-5.0); SODIUM 146.4 mmol/L (137-145); TOTAL PROTEIN 8.5 g/dL (6.3-8.2)
[2017-05-12] MEDS ORDERED: IBUPROFEN 600 MG TABLET PO ONE (00:53)
--- NOTE | 2017-05-12 00:53 | ER Document Report ---
ED General - General Chief Complaint: Abdominal Pain Stated Complaint: ABDOMINAL PAIN Time Seen by Provider: 05/11/17 23:56 Notes: Patient is a 46-year-old female status post total abdominal hysterectomy 3 months ago who presents with abdominal pain. Patient states that she has had chronic abdominal wall soreness and discomfort since the surgery and typically requires a supportive chair in order to prevent recurrence of this pain. Patient states that she just sat in a chair today at work and that it abruptly went into a reclined position causing her to abruptly tense her abdominal wall. She states that since that time she has felt as though she has pulled a muscle in her abdominal wall. She notes a dull, constant, throbbing pain to the central abdomen. Moving worsens the pain. She has not tried anything to improve the pain. She states this is very similar to when she is irritated this area of musculature in the past. She has not seen her primary care doctor regarding today's concerns. She denies any fever, constitutional symptoms or vomiting. No vaginal bleeding or discharge. TRAVEL OUTSIDE OF THE [place] IN LAST 30 DAYS: No - Related Data Allergies/Adverse Reactions: No Known Allergies Allergy (Verified 05/11/17 21:53) Past Medical History - General Information source: Patient - Social History Smoking Status: Never Smoker Frequency of alcohol use: None Drug Abuse: None Lives with: Family Family History: Reviewed & Not Pertinent Patient has suicidal ideation: No Patient has homicidal ideation: No Pulmonary Medical History: Denies: Hx Tuberculosis Renal/ Medical History: Denies: Hx Ovarian Cysts, Hx Peritoneal Dialysis, Hx Pelvic Inflammatory Disease Malignancy Medical History: Denies: Hx Breast Cancer, Hx Cervical Cancer, Hx Leukemia, Hx Ovarian Cancer Infectious Medical History: Denies: Hx HIV Past Surgical History: Reports: Hx Section - X3. Denies: Hx Appendectomy, Hx Bowel Surgery, Hx Cholecystectomy, Hx Coronary Artery Bypass Graft, Hx Gastric Bypass Surgery, Hx Herniorrhaphy, Hx Hysterectomy, Hx Mastectomy, Hx Pacemaker, Hx Tonsillectomy, Hx Tubal Ligation - Immunizations Hx Pneumococcal Vaccination: 06/27/00 Review of Systems - Review of Systems Notes: Constitutional: Negative for fever. HENT: Negative for sore throat. Eyes: Negative for visual changes. Cardiovascular: Negative for chest pain. Respiratory: Negative for shortness of breath. Gastrointestinal: Positive for abdominal pain Genitourinary: Negative for dysuria. Musculoskeletal: Negative for back pain. Skin: Negative for rash. Neurological: Negative for headaches, weakness or numbness. 10 point ROS negative except as marked above and in HPI. Physical Exam - Vital signs Vitals: Temp Pulse Resp BP Pulse Ox 98.4 F 93 18 145/93 H 98 05/11/17 21:53 05/11/17 21:53 05/11/17 21:53 05/11/17 21:53 05/11/17 21:53 Interpretation: Normal Notes: PHYSICAL EXAMINATION: GENERAL: Well-appearing, well-nourished and in no acute distress. HEAD: Atraumatic, normocephalic. EYES: Pupils equal round and reactive to light, extraocular movements intact, sclera anicteric, conjunctiva are normal. ENT: nares patent, oropharynx clear without exudates. Moist mucous membranes. NECK: Normal range of motion, supple without lymphadenopathy LUNGS: Breath sounds clear to auscultation bilaterally and equal. No wheezes rales or rhonchi. HEART: Regular rate and rhythm without murmurs ABDOMEN: Soft, nontender, normoactive bowel sounds. No guarding, no rebound. No masses appreciated. EXTREMITIES: Normal range of motion, no pitting or edema. No cyanosis. NEUROLOGICAL: No focal neurological deficits. Moves all extremities spontaneously and on command. PSYCH: Normal mood, normal affect. SKIN: Warm, Dry, normal turgor, no rashes or lesions noted. Course - Re-evaluation Re-evalutation: 05/12/17 00:48 Patient presents with an abdominal wall strain after she states that she reclined at a rapid speed and a office chair. She has had this disc comfort since having a complete hysterectomy and notes that generally she does well unless she has similar events today. Her abdominal exam is benign without any focal areas of tenderness. Labs obtained in triage are unremarkable. Her clinical history is not consistent with any acute life-threatening pathology including acute appendicitis, bowel obstruction, biliary pathology or acute pancreatitis. No believe any medical imaging is indicated at this time given clinical history examination. I have recommended NSAIDs, heat, and follow-up as needed. At this time will discharge with return precautions and follow-up recommendations. Verbal discharge instructions given a the bedside and opportunity for questions given. Medication warnings reviewed. Patient is in agreement with this plan and has verbalized understanding of return precautions and the need for primary care follow-up in the next 24-72 hours. - Vital Signs Vital signs: Temp Pulse Resp BP Pulse Ox 98.7 F 85 16 127/73 H 98 05/12/17 01:11 05/12/17 01:11 05/12/17 01:11 05/12/17 01:11 05/12/17 01:11 - Laboratory Result Diagrams: 05/11/17 22:50 05/11/17 22:50 Laboratory results interpreted by me: 05/11/17 05/11/17 05/11/17 22:50 22:50 22:50 RDW 14.9 H Sodium 146.4 H Total Protein 8.5 H Urine Urobilinogen 2.0 H Ur Leukocyte Esterase MODERATE H Discharge - Discharge Clinical Impression: Abdominal wall strain Qualifiers: Encounter type: initial encounter Qualified Code(s): S39.011A - Strain of muscle, fascia and tendon of abdomen, initial encounter Condition: Good Disposition: HOME, SELF-CARE Additional Instructions: Please take ibuprofen 600 mg every 6 hours as needed for discomfort. You may apply heat to the affected area. You also been sent home with a muscle relaxant , Flexeril which may use as needed for discomfort that is not controlled by ibuprofen although please be cautious as this is very sedating medication should generally be only used at night. Return if you develop persistent vomiting, worsening pain, or any other symptoms that are worrisome to you. Prescriptions: Cyclobenzaprine HCl [Flexeril 10 mg Tablet] 10 mg PO QHS PRN #15 tablet PRN Reason: Forms: Return to Work
[2017-05-12 01:12] VITALS: BP 127/73
== END 2017-05-12 01:11 | disposition home or self-care (01) ==
LOC: ER 21:41
DX: S39.011A Strain of muscle, fascia and tendon of abdomen, initial encounter (principal); X50.0XXA Overexertion from strenuous movement or load, initial encounter; Y99.0 Civilian activity done for income or pay; R10.9 Unspecified abdominal pain; Z90.710 Acquired absence of both cervix and uterus
CPT/HCPCS: 36415; 80053; 81001; 81025; 83690; 85025; 99284

== ENCOUNTER 2017-10-11 08:08 | Outpatient (CLI) | payer BC ==
[~2017-10-11 08:08] MED LIST changes: -CEFAZOLIN 1 GM/D5W RTU 1 GM/50 ML RTUPB IV PRN; -DEXAMETHASONE SOD PHOSPHATE INJ 4 MG/1 ML VIAL ONE; +FERRIC CARBOXYMALTOSE 750 MG in NORMAL SALINE 250 ML IV PRN; -GLYCOPYRROLATE INJ 0.4 MG/2 ML VIAL ONE; -LIDOCAINE 2% INJ-PF (20 MG/ML) 10 ML AMPUL ONE; +NORMAL SALINE 250 ML IV PRN; -ONDANSETRON HCL INJ/PF 4 MG/2 ML SDV ONE; -RINGERS SOLUTION,LACTATED 1,000 ML IV PRN; -ROCURONIUM BROMIDE INJ 50 MG/5 ML VIAL IV ONE; -SUCCINYLCHOLINE CHLORIDE INJ 200 MG/10 ML VIAL ONE; -VECURONIUM BROMIDE INJ 10 MG VIAL IV ONE
[2017-10-11 09:50] VITALS: BP 133/87
== END 2017-10-11 09:53 | disposition home or self-care (01) ==
LOC: II 08:08 → 5TH 08:10 → II 09:53
PROVIDERS: ATTEND Internal Medicine
PROC: 3E033GC Introduction of Other Therapeutic Substance into Peripheral Vein, Percutaneous Approach (ICD-10-PCS; principal; 2017-10-11)
DX: D50.8 Other iron deficiency anemias (principal); K90.9 Intestinal malabsorption, unspecified
CPT/HCPCS: 96365; J7050; J1439

== ENCOUNTER 2017-10-18 08:13 | Outpatient (CLI) | payer BC ==
[2017-10-18 08:51] VITALS: BP 130/86
== END 2017-10-18 10:19 | disposition home or self-care (01) ==
LOC: II 08:13 → 5TH 08:15 → II 10:19
PROVIDERS: ATTEND Internal Medicine
PROC: 3E033GC Introduction of Other Therapeutic Substance into Peripheral Vein, Percutaneous Approach (ICD-10-PCS; principal; 2017-10-18)
DX: D50.8 Other iron deficiency anemias (principal); K90.9 Intestinal malabsorption, unspecified
CPT/HCPCS: 96365; J7050; J1439

== ENCOUNTER 2018-01-04 21:58 | Emergency (ER) | payer BC | END 2018-01-05 01:37 | disposition left against medical advice (07) | LOC: ER 21:58 | DX: Z53.21 Procedure and treatment not carried out due to patient leaving prior to being seen by health care provider (principal) ==

== ENCOUNTER 2018-01-06 23:41 | Emergency (ER) | payer BC ==
--- NOTE | 2018-01-07 02:24 | RADIOLOGY REPORT (SQ) ---
EXAM DESCRIPTION: 3 views of the right foot January 07, 2018 CLINICAL HISTORY: 47 years, Female, trauma COMPARISON: None. FINDINGS: There is no acute fracture or dislocation. The bony alignment is normal. There is diffuse soft tissue swelling overlying the forefoot and midfoot which is most pronounced dorsally. The tarsal, metatarsal, and phalangeal bones are normal in appearance. There is calcaneal enthesopathy at the plantar fascia insertion. IMPRESSION: 1. No acute fracture or dislocation. 2. Soft tissue swelling. 3. Calcaneal enthesopathy.
--- NOTE | 2018-01-07 02:43 | ER Document Report ---
ED General - General Chief Complaint: Swelling of Lower Extremity Stated Complaint: SWOLLEN FEET Time Seen by Provider: 01/07/18 00:58 Notes: Patient is a 47-year-old female who presents with complaint of swollen feet. Patient says this been ongoing for last month. She says that when she sleeps at night her swelling goes away. She says she then goes to work. At work she sits at a desk all day. She says but never worked in her feet are swollen again. She saw her doctor who did x-rays of her legs and then placed her on a week's worth of Lasix. Her doctor told her that her swelling continues and she should go to the ER. She denies any chest pain. No shortness of breath. No fevers. No history of congestive heart failure. No other complaints at this time. TRAVEL OUTSIDE OF THE [place] IN LAST 30 DAYS: No - Related Data Allergies/Adverse Reactions: No Known Allergies Allergy (Verified 05/11/17 21:53) Past Medical History - Social History Smoking Status: Never Smoker Frequency of alcohol use: None Drug Abuse: None Family History: Reviewed & Not Pertinent Patient has suicidal ideation: No Patient has homicidal ideation: No Pulmonary Medical History: Denies: Hx Tuberculosis Renal/ Medical History: Denies: Hx Ovarian Cysts, Hx Peritoneal Dialysis, Hx Pelvic Inflammatory Disease Malignancy Medical History: Denies: Hx Breast Cancer, Hx Cervical Cancer, Hx Leukemia, Hx Ovarian Cancer Infectious Medical History: Denies: Hx HIV Past Surgical History: Reports: Hx Section - X3. Denies: Hx Appendectomy, Hx Bowel Surgery, Hx Cholecystectomy, Hx Coronary Artery Bypass Graft, Hx Gastric Bypass Surgery, Hx Herniorrhaphy, Hx Hysterectomy, Hx Mastectomy, Hx Pacemaker, Hx Tonsillectomy, Hx Tubal Ligation - Immunizations Hx Pneumococcal Vaccination: 06/27/00 Review of Systems - Review of Systems Notes: My Normal Review Basic REVIEW OF SYSTEMS: CONSTITUTIONAL : Denies fever, chills, or sweats. Denies recent illness. CARDIOVASCULAR: Denies chest pain. RESPIRATORY: Denies cough, cold, or chest congestion. Denies shortness of breath, difficulty breathing, or wheezing. GASTROINTESTINAL: Denies abdominal pain. Denies nausea, vomiting, or diarrhea. MUSCULOSKELETAL: Pedal edema SKIN: Denies rash or skin lesions. NEUROLOGICAL: Denies altered mental status or loss of consciousness. Denies headache. Denies weakness or paralysis or loss of use of either side. Denies problems with gait or speech. Denies sensory or motor loss. ALL OTHER SYSTEMS REVIEWED AND NEGATIVE. Physical Exam - Vital signs Vitals: Temp Pulse Resp BP Pulse Ox 99.1 F 91 18 132/74 H 99 01/06/18 23:59 01/06/18 23:59 01/06/18 23:59 01/06/18 23:59 01/06/18 23:59 - Notes Notes: General Appearance: Well nourished, alert, cooperative, no acute distress, no obvious discomfort. Well-appearing. Vitals: reviewed, See vital signs table. Head: no swelling or tenderness to the head Eyes: PERRL, EOMI, Conjuctiva clear Mouth: No decreasd moisture Lungs: No wheezing, No rales, No rhonci, No accessory muscle use, good air exchange bilaterally. Heart: Normal rate, Regular rythm, No murmur, no rub Extremities: strength 5/5 in all extremities, good pulses in all extremities, no swelling or tenderness in the extremities with exception of some pain over the middle toe on the right foot. Patient says when she is walking yesterday she caught her sandals on the rug and it caused her to go to bed back. Significant bruising., 2+ pedal edema bilaterally. Skin: warm, dry, appropriate color, no rash Neuro: speech clear, oriented x 3, normal affect, responds appropriately to questions. Course - Re-evaluation Re-evalutation: 01/07/18 04:20 Patient has what appears to be gravity dependent edema. Has been very hot this month and I am sure that his also causing edema to be worse than usual. I talked to patient length about the need to wear compression stockings. I encouraged her to wear these throughout the day. Encourage her then to have her legs elevated at nighttime. I encouraged her to return to the ER if she has worsening swelling, any difficulty breathing, any chest pain, or if she feels unwell. Patient agrees with plan will be discharged home. Dictation of this chart was performed using voice recognition software; therefore, there may be some unintended grammatical errors. - Vital Signs Vital signs: Temp Pulse Resp BP Pulse Ox 97.7 F 79 14 118/101 H 98 01/07/18 02:48 01/07/18 02:48 01/07/18 02:48 01/07/18 02:48 01/07/18 02:48 Discharge - Discharge Clinical Impression: Pedal edema Condition: Good Disposition: HOME, SELF-CARE Additional Instructions: Please return to the immediately if you develop difficulty breathing, worsening swelling, or feel unwell. please go to the drug store and buy compression stockings. Wear these every day. When at home please keep your legs elevated and elevate them on pillows when sleeping at night.
[2018-01-07 03:57] VITALS: BP 118/101
== END 2018-01-07 03:01 | disposition home or self-care (01) ==
LOC: ER 23:41
DX: R60.0 Localized edema (principal)
CPT/HCPCS: 99283

== ENCOUNTER 2018-02-20 09:16 | Emergency (ER) | payer BC ==
[2018-02-20] MEDS ORDERED: DIPHENHYDRAMINE HCL 50 MG/ML VIAL IV ONE (09:44)
[2018-02-20] MEDS ORDERED: PROCHLORPERAZINE EDISYLATE INJ 10 MG/2 ML VIAL IV ONE (09:44)
--- NOTE | 2018-02-20 09:47 | ER Document Report ---
ED Medical Screen (RME) - General Chief Complaint: Headache Stated Complaint: HEADACHE Time Seen by Provider: 02/20/18 09:36 Notes: 47-year-old female to emergency department chief complaint of headache for approximately 3-4 days. No sudden onset. Has had a headache in the past very similar to this but also having symptoms of feeling like she is going to pass out. Having lower extremity edema. Has a history of iron deficiency anemia. Had iron infusion in October and never has had blood work done since that time. Feels more tired than usual. No fever or chills. No neck pain or stiffness. Was at work today and felt like she was going to pass out so came here for evaluation. Headache located on the left side of her head with some occasional numbness on the left side of her face. I have greeted and performed a rapid initial assessment of this patient. A comprehensive ED assessment and evaluation of the patient, analysis of test results and completion of the medical decision making process will be conducted by additional ED providers. TRAVEL OUTSIDE OF THE [place] IN LAST 30 DAYS: No - Related Data Allergies/Adverse Reactions: No Known Allergies Allergy (Verified 02/20/18 09:17) Past Medical History Pulmonary Medical History: Denies: Hx Tuberculosis Renal/ Medical History: Denies: Hx Ovarian Cysts, Hx Peritoneal Dialysis, Hx Pelvic Inflammatory Disease Malignancy Medical History: Denies: Hx Breast Cancer, Hx Cervical Cancer, Hx Leukemia, Hx Ovarian Cancer Infectious Medical History: Denies: Hx HIV Past Surgical History: Reports: Hx Section - X3. Denies: Hx Appendectomy, Hx Bowel Surgery, Hx Cholecystectomy, Hx Coronary Artery Bypass Graft, Hx Gastric Bypass Surgery, Hx Herniorrhaphy, Hx Hysterectomy, Hx Mastectomy, Hx Pacemaker, Hx Tonsillectomy, Hx Tubal Ligation Physical Exam - Vital signs Vitals: Temp Pulse Resp BP Pulse Ox 98.2 F 78 18 147/86 H 100 02/20/18 09:25 02/20/18 09:25 02/20/18 09:25 02/20/18 09:25 02/20/18 09:25 Course - Vital Signs Vital signs: Temp Pulse Resp BP Pulse Ox 98.2 F 78 18 147/86 H 100 02/20/18 09:25 02/20/18 09:25 02/20/18 09:25 02/20/18 09:25 02/20/18 09:25
--- NOTE | 2018-02-20 10:31 | ER Document Report ---
ED Headache - General Chief Complaint: Headache Stated Complaint: HEADACHE Time Seen by Provider: 02/20/18 09:36 Mode of Arrival: Ambulatory Information source: Patient Notes: Patient presents complaining of left-sided headache pain for the past 3-4 days. Patient states that rest will help the headache and it will go away but then comes back. Patient does complain of nausea and feeling fatigued. Patient denies any fever or neck pain. Patient does state that she has felt faint today and states that she has had lower extremity edema. Patient does report having peripheral edema in the past but states that this is persisting today. Patient denies any chest pain or shortness of breath. Patient denies any previous history of DVT or PE. TRAVEL OUTSIDE OF THE [place] IN LAST 30 DAYS: No - HPI Patient complains to provider of: Headache Patient reports: Occasional migraines Onset: Other - 3 days Onset was: Gradual Timing: Still present Quality of pain: Achy Pain Level: 4 Associated symptoms: Lightheaded, Nausea/vomiting - nausea, Photophobia. denies : Dizzy, Motor/sensory loss to arm, Neck pain, Speech problems, Stiff neck Exacerbated by: Light Similar symptoms previously: Yes Recently seen / treated by doctor: No - Related Data Allergies/Adverse Reactions: No Known Allergies Allergy (Verified 02/20/18 09:17) Past Medical History - General Information source: Patient - Social History Smoking Status: Never Smoker Frequency of alcohol use: None Drug Abuse: None Occupation: call center Lives with: Family Family History: Reviewed & Not Pertinent Patient has suicidal ideation: No Patient has homicidal ideation: No - Medical History Medical History: Other - anemia Pulmonary Medical History: Denies: Hx Tuberculosis Neurological Medical History: Reports: Other - headaches Renal/ Medical History: Denies: Hx Ovarian Cysts, Hx Peritoneal Dialysis, Hx Pelvic Inflammatory Disease Malignancy Medical History: Denies: Hx Breast Cancer, Hx Cervical Cancer, Hx Leukemia, Hx Ovarian Cancer Infectious Medical History: Denies: Hx HIV Past Surgical History: Reports: Hx Section - X3 - Immunizations Hx Pneumococcal Vaccination: 06/27/00 Review of Systems - Review of Systems Constitutional: Other - fatigue. denies: Fever, Recent illness EENT: No symptoms reported Cardiovascular: Lightheaded. denies: Chest pain Respiratory: No symptoms reported. denies: Cough, Short of breath Gastrointestinal: Nausea. denies: Abdominal pain, Vomiting Genitourinary: No symptoms reported Female Genitourinary: No symptoms reported Musculoskeletal: Leg swelling - bilat. denies: Back pain, Neck pain Skin: No symptoms reported. denies: Rash Hematologic/Lymphatic: No symptoms reported Neurological/Psychological: Headaches. denies: Confusion, Weakness, Lost consciousness Physical Exam - Vital signs Vitals: Temp Pulse Resp BP Pulse Ox 98.2 F 78 18 147/86 H 100 02/20/18 09:25 02/20/18 09:25 02/20/18 09:25 02/20/18 09:25 02/20/18 09:25 - General General appearance: Appears well, Alert In distress: None - HEENT Head: Normocephalic, Atraumatic Eyes: Normal Conjunctiva: Normal Extraocular movements intact: Yes Pupils: PERRL Ears: Normal External canal: Normal Tympanic membrane: Normal Nasal: Normal Mouth/Lips: Normal Mucous membranes: Normal Pharynx: Normal Neck: Normal, Supple. No: Lymphadenopathy, Meningismus - Respiratory Respiratory status: No respiratory distress Chest status: Nontender Breath sounds: Normal. No: Rales, Rhonchi, Stridor, Wheezing Chest palpation: Normal - Cardiovascular Rhythm: Regular Heart sounds: S1 appreciated, S2 appreciated Pulses: Normal: Dorsalis pedis - Abdominal Inspection: Obese Distension: No distension Bowel sounds: Normal Tenderness: Nontender - Back Back: Normal, Nontender. No: Vertebra tenderness - Extremities General upper extremity: Normal inspection, Normal ROM General lower extremity: Nontender, Edema - 2+bilat LE from mid tibia distally, Normal ROM - Neurological Neuro grossly intact: Yes Cognition: Normal Milena Coma Scale Eye Opening: Spontaneous Mcroberts Coma Scale Verbal: Oriented Milena Coma Scale Motor: Obeys Commands Mcroberts Coma Scale Total: 15 - Psychological Associated symptoms: Normal affect, Normal mood - Skin Skin Temperature: Warm Skin Moisture: Dry Skin Color: Normal Course - Re-evaluation Re-evalutation: 02/20/18 13:19 Patient reports headache pain is down to 2 out of 5 scale. Patient is eating lunch. Patient states that nausea is improved. Patient complains of increased fatigue after medications. 02/20/18 15:34 Patient resting with eyes closed, states headache pain is resolved at this time. Patient without any nausea or vomiting. Patient without any chest pain or dyspnea. She denies feeling any lightheadedness or dizziness. Patient's blood specimen hemolyzed yet again. Discussed with patient results that we do have back. Patient defers additional blood draws attempts at this time and prefers to follow-up on an outpatient basis with a primary doctor and cardiology for further evaluation. Patient advised that provider would be happy to have lab come and redraw patient so that we could get definitive results on her chemistry panel. Patient declines. Patient did have a negative troponin cycled and had EKG without findings worrisome for acute ischemic changes. Patient without any dyspnea symptoms and breath sounds are clear bilaterally. Patient reports previous history of dependent edema. No concern for DVT or PE at this time. The patient presents with headache without signs of DATA OPERATIONS LEADER bleed, stroke, infection, or other serious etiology. The patient is neurologically intact. Given the extremely low risk of these diagnoses further testing and evaluation for these possibilities does not appear to be indicated at this time. The patient has been instructed to return if the symptoms worsen or change in any way. 02/20/18 15:37 - Vital Signs Vital signs: Temp Pulse Resp BP Pulse Ox 98.2 F 78 15 134/80 H 100 02/20/18 09:25 02/20/18 09:25 02/20/18 15:00 02/20/18 15:00 02/20/18 15:00 - Laboratory Result Diagrams: 02/20/18 12:02 02/20/18 12:02 Laboratory results interpreted by me: 02/20/18 14:18 Urine Urobilinogen 4.0 H Labs- Entire Visit 02/20/18 02/20/18 02/20/18 12:02 12:02 12:02 WBC 8.0 RBC 4.68 Hgb 14.2 Hct 41.5 MCV 89 MCH 30.4 MCHC 34.3 RDW 12.7 Plt Count 267 Seg Neutrophils % 70.2 Lymphocytes % 20.6 Monocytes % 7.7 Eosinophils % 0.6 Basophils % 0.9 Absolute Neutrophils 5.6 Absolute Lymphocytes 1.7 Absolute Monocytes 0.6 Absolute Eosinophils 0.1 Absolute Basophils 0.1 Sodium Cancelled Potassium Cancelled Chloride Cancelled Carbon Dioxide Cancelled Anion Gap Cancelled BUN Cancelled Creatinine Cancelled Est GFR ( Amer) Cancelled Est GFR (Non-Af Amer) Cancelled Glucose Cancelled Calcium Cancelled Total Bilirubin Cancelled Direct Bilirubin Cancelled Neonat Total Bilirubin Cancelled Neonat Direct Bilirubin Cancelled Neonat Indirect Bili Cancelled AST Cancelled ALT Cancelled Alkaline Phosphatase Cancelled Troponin I Cancelled NT-Pro-B Natriuret Pep Cancelled Total Protein Cancelled Albumin Cancelled Serum HCG, Qual Urine Color Urine Appearance Urine pH Ur Specific Adams Urine Protein Urine Glucose (UA) Urine Ketones Urine Blood Urine Nitrite Urine Bilirubin Urine Urobilinogen Ur Leukocyte Esterase Urine WBC (Auto) Urine RBC (Auto) Urine Bacteria (Auto) Squamous Epi Cells Auto Urine Mucus (Auto) Urine Ascorbic Acid 02/20/18 02/20/18 02/20/18 12:02 13:47 13:47 WBC RBC Hgb Hct MCV MCH MCHC RDW Plt Count Seg Neutrophils % Lymphocytes % Monocytes % Eosinophils % Basophils % Absolute Neutrophils Absolute Lymphocytes Absolute Monocytes Absolute Eosinophils Absolute Basophils Sodium Potassium Chloride Carbon Dioxide Anion Gap BUN Creatinine Est GFR ( Amer) Est GFR (Non-Af Amer) Glucose Calcium Total Bilirubin Direct Bilirubin Neonat Total Bilirubin Not Reportable Neonat Direct Bilirubin Not Reportable Neonat Indirect Bili Not Reportable AST ALT Alkaline Phosphatase Troponin I NT-Pro-B Natriuret Pep Total Protein Albumin Serum HCG, Qual Cancelled Cancelled Urine Color Urine Appearance Urine pH Ur Specific Adams Urine Protein Urine Glucose (UA) Urine Ketones Urine Blood Urine Nitrite Urine Bilirubin Urine Urobilinogen Ur Leukocyte Esterase Urine WBC (Auto) Urine RBC (Auto) Urine Bacteria (Auto) Squamous Epi Cells Auto Urine Mucus (Auto) Urine Ascorbic Acid 02/20/18 02/20/18 02/20/18 13:47 14:18 14:34 WBC RBC Hgb Hct MCV MCH MCHC RDW Plt Count Seg Neutrophils % Lymphocytes % Monocytes % Eosinophils % Basophils % Absolute Neutrophils Absolute Lymphocytes Absolute Monocytes Absolute Eosinophils Absolute Basophils Sodium Potassium Chloride Carbon Dioxide Anion Gap BUN Creatinine Est GFR ( Amer) Est GFR (Non-Af Amer) Glucose Calcium Total Bilirubin Direct Bilirubin Neonat Total Bilirubin Neonat Direct Bilirubin Neonat Indirect Bili AST ALT Alkaline Phosphatase Troponin I < 0.012 NT-Pro-B Natriuret Pep 60 Total Protein Albumin Serum HCG, Qual NEGATIVE Urine Color YELLOW Urine Appearance CLEAR Urine pH 6.0 Ur Specific Adams 1.017 Urine Protein NEGATIVE Urine Glucose (UA) NEGATIVE Urine Ketones NEGATIVE Urine Blood NEGATIVE Urine Nitrite NEGATIVE Urine Bilirubin NEGATIVE Urine Urobilinogen 4.0 H Ur Leukocyte Esterase NEGATIVE Urine WBC (Auto) 3 Urine RBC (Auto) 0 Urine Bacteria (Auto) TRACE Squamous Epi Cells Auto 4 Urine Mucus (Auto) RARE Urine Ascorbic Acid NEGATIVE Discharge - Discharge Clinical Impression: Light-headed feeling Headache Qualifiers: Headache type: unspecified Headache chronicity pattern: unspecified pattern Intractability: not intractable Qualified Code(s): R51 - Headache Condition: Stable Disposition: HOME, SELF-CARE Instructions: Intravenous Compazine for Headaches ([facility]), Use of Diphenhydramine , Family Physicians / Practices, Headache ([facility]) Additional Instructions: Return immediately for any new or worsening symptoms Followup with your primary care provider, call tomorrow to make a followup appointment Follow-up with a build technician for further evaluation, call tomorrow for an appointment Be sure to eat regularly spaced meals Prescriptions: Butalb/Acetaminophen/Caffeine [Fioricet (50-325-40 mg) Tablet] 1 - 2 tab PO Q4H #15 each Forms: Return to Work Referrals: [facility] [Provider Group] - Follow up as needed LASHAWN BROWNE MD [ACTIVE STAFF] - Follow up tomorrow
[2018-02-20] MEDS ORDERED: NORMAL SALINE 1000 ML 1,000 ML IV ONE (11:22)
[2018-02-20 12:14] LABS: ABSOLUTE BASOPHILS # (AUTO) 0.1 10^3/uL (0.0-0.2); ABSOLUTE EOSINOPHILS # (AUTO) 0.1 10^3/uL (0.0-0.6); ABSOLUTE LYMPHOCYTES (AUTO) 1.7 10^3/uL (0.5-4.7); ABSOLUTE MONOCYTES (AUTO) 0.6 10^3/uL (0.1-1.4); ABSOLUTE NEUT (AUTO) 5.6 10^3/uL (1.7-8.2); BASOPHILS % (AUTO) 0.9 % (0-2); EOSINOPHILS % (AUTO) 0.6 % (0-6); HEMATOCRIT 41.5 % (36.0-47.0); HEMOGLOBIN 14.2 g/dL (12.0-15.5); LYMPHOCYTES % (AUTO) 20.6 % (13-45); MEAN CORPUSCULAR HEMOGLOBIN 30.4 pg (27.0-33.4); MEAN CORPUSCULAR HGB CONC 34.3 g/dL (32.0-36.0); MEAN CORPUSCULAR VOLUME 89 fl (80-97); MONOCYTES % (AUTO) 7.7 % (3-13); PLATELET COUNT 267 10^3/uL (150-450); RED BLOOD COUNT 4.68 10^6/uL (3.72-5.28); RED CELL DISTRIBUTION WIDTH 12.7 % (11.5-14.0); SEGMENTED NEUTROPHILS % (AUTO) 70.2 % (42-78); TOTAL CELLS COUNTED % (AUTO) 100 %
--- NOTE | 2018-02-20 13:09 | EKG REPORT ---
SEVERITY:- ABNORMAL ECG - SINUS RHYTHM LEFT ATRIAL ABNORMALITY NONSPECIFIC ST-T CHANGES- INFERIOR LEADS : Confirmed by: Regis Mccallum MD 20-Feb-2018 13:08:11
[2018-02-20] MEDS ORDERED: KETOROLAC TROMETHAMINE INJ/PF 30 MG/1 ML SDV IV ONE (13:18)
[2018-02-20] MEDS ORDERED: DEXAMETHASONE SOD PHOS INJ 10 MG/1 ML VIAL IV ONE (13:19)
[2018-02-20 14:30] LABS: NT PRO BNP 60 pg/mL (<125)
[2018-02-20 14:31] LABS: APPEARANCE,URINE CLEAR; BILIRUBIN,URINE NEGATIVE (NEGATIVE); COLOR,URINE YELLOW; GLUCOSE, URINE NEGATIVE (NEGATIVE); KETONES,URINE NEGATIVE (NEGATIVE); LEUKOCYTE ESTERASE,URINE NEGATIVE (NEGATIVE); NITRITE,URINE NEGATIVE (NEGATIVE); PROTEIN,URINE NEGATIVE (NEGATIVE); URINE SPECIFIC GRAVITY 1.017
[2018-02-20 14:35] LABS: TROPONIN I < 0.012 ng/mL
[2018-02-20 15:15] VITALS: BP 134/80
== END 2018-02-20 17:46 | disposition home or self-care (01) ==
LOC: ER 09:16
DX: R51 Headache (principal); R42 Dizziness and giddiness; R11.2 Nausea with vomiting, unspecified; R53.83 Other fatigue
CPT/HCPCS: 93005; 99284; 96361; 96374; 96375; 36415; 84703; 85025; 81001; 84484; 83880; 93010; J1200; J1885; J0780; J7030; J1100

== ENCOUNTER 2018-05-22 13:14 | Emergency (ER) | payer BC ==
[2018-05-22 13:39] VITALS: BP 138/99
--- NOTE | 2018-05-22 14:36 | ER Document Report ---
ED Medical Screen (RME) - General Chief Complaint: Abdominal Pain Stated Complaint: ABDOMNAL PAIN Time Seen by Provider: 05/22/18 14:31 Notes: 47-year-old female patient with 3-day history of upper abdominal pain which on exam seems to be predominantly the right upper quadrant. Pain is mostly constant, there is some nausea without vomiting. Patient had a hysterectomy in 2017. He does have a history of heartburn. I have greeted and performed a rapid initial assessment of this patient. A comprehensive ED assessment and evaluation of the patient, analysis of test results and completion of the medical decision making process will be conducted by additional ED providers. TRAVEL OUTSIDE OF THE [place] IN LAST 30 DAYS: No - Related Data Allergies/Adverse Reactions: No Known Allergies Allergy (Verified 02/20/18 09:17) Past Medical History Pulmonary Medical History: Denies: Hx Tuberculosis Renal/ Medical History: Denies: Hx Ovarian Cysts, Hx Peritoneal Dialysis, Hx Pelvic Inflammatory Disease Malignancy Medical History: Denies: Hx Breast Cancer, Hx Cervical Cancer, Hx Leukemia, Hx Ovarian Cancer Infectious Medical History: Denies: Hx HIV Past Surgical History: Reports: Hx Section - X3. Denies: Hx Appendectomy, Hx Bowel Surgery, Hx Cholecystectomy, Hx Coronary Artery Bypass Graft, Hx Gastric Bypass Surgery, Hx Herniorrhaphy, Hx Hysterectomy, Hx Mastectomy, Hx Pacemaker, Hx Tonsillectomy, Hx Tubal Ligation Physical Exam - Vital signs Vitals: Temp Pulse Resp BP Pulse Ox 97.8 F 85 18 138/99 H 97 05/22/18 13:35 05/22/18 13:35 05/22/18 13:35 05/22/18 13:35 05/22/18 13:35 Course - Vital Signs Vital signs: Temp Pulse Resp BP Pulse Ox 97.8 F 85 18 138/99 H 97 05/22/18 13:35 05/22/18 13:35 05/22/18 13:35 05/22/18 13:35 05/22/18 13:35
--- NOTE | 2018-05-22 15:33 | ER Document Report ---
ED General - General Chief Complaint: Abdominal Pain Stated Complaint: ABDOMNAL PAIN Time Seen by Provider: 05/22/18 14:31 TRAVEL OUTSIDE OF THE [place] IN LAST 30 DAYS: No - HPI Notes: Patient is a 47-year-old female with a history of hysterectomy who presents to the ED complaining of right-sided abdominal pain times 3 days. Patient states that the pain has been relatively constant, but increasing in intensity. Patient states that the pain does not radiate. She is still able to eat and drink, but does have a decreased p.o. intake. She has not noticed any worsening pain with p.o. intake. She is urinating normally and having normal bowel movements, but states that she does feel somewhat constipated which is not unremarkable for her. Denies any drug allergies. No other surgical history to her abdomen. Last bowel movement was this morning. Denies any headache, fever, URI, sore throat, chest pain, palpitations, syncope, cough, shortness of breath, wheeze, dyspnea, nausea/vomiting/diarrhea, urinary retention, dysuria, hematuria, vaginal discharge/odor/bleeding, back pain, loss of control of bowel or bladder, numbness/tingling, saddle anesthesia, muscle paralysis/weakness, or rash. - Related Data Allergies/Adverse Reactions: No Known Allergies Allergy (Verified 02/20/18 09:17) Past Medical History - Social History Smoking Status: Never Smoker Frequency of alcohol use: None Drug Abuse: None Family History: Reviewed & Not Pertinent Patient has suicidal ideation: No Patient has homicidal ideation: No Pulmonary Medical History: Denies: Hx Tuberculosis Neurological Medical History: Reports: Hx Migraine Renal/ Medical History: Denies: Hx Ovarian Cysts, Hx Peritoneal Dialysis, Hx Pelvic Inflammatory Disease Malignancy Medical History: Denies: Hx Breast Cancer, Hx Cervical Cancer, Hx Leukemia, Hx Ovarian Cancer Infectious Medical History: Denies: Hx HIV Past Surgical History: Reports: Hx Section - X3, Hx Hysterectomy. Denies: Hx Appendectomy, Hx Bowel Surgery, Hx Cholecystectomy, Hx Coronary Artery Bypass Graft, Hx Gastric Bypass Surgery, Hx Herniorrhaphy, Hx Mastectomy , Hx Pacemaker, Hx Tonsillectomy, Hx Tubal Ligation - Immunizations Hx Pneumococcal Vaccination: 06/27/00 Review of Systems - Review of Systems -: Yes All other systems reviewed and negative Physical Exam - Vital signs Vitals: Temp Pulse Resp BP Pulse Ox 97.8 F 85 18 138/99 H 97 05/22/18 13:35 05/22/18 13:35 05/22/18 13:35 05/22/18 13:35 05/22/18 13:35 - Notes Notes: PHYSICAL EXAMINATION: GENERAL: Well-appearing, well-nourished and in no acute distress. Eyes: anicteric. LUNGS: Breath sounds clear to auscultation bilaterally and equal. No wheezes rales or rhonchi. HEART: Regular rate and rhythm without murmurs, rubs, gallops. ABDOMEN: Soft, nondistended abdomen. No guarding, no rebound. No masses appreciated. Normal bowel sounds present. No CVA tenderness bilaterally. Obese. + tenderness near McBurney and mild tenderness to RUQ. No lower pelvic tenderness. Musculoskeletal: FROM to passive/active. Strength 5+/5. Extremities: No cyanosis, clubbing, or edema b/l. Peripheral pulses 2+. Capillary refill less than 3 seconds. NEUROLOGICAL: Normal speech, normal gait. Normal sensory, motor exams PSYCH: Normal mood, normal affect. SKIN: Warm, Dry, normal turgor, no rashes or lesions noted. Course - Re-evaluation Re-evalutation: 05/22/18 16:29 Patient is an afebrile, well-hydrated, 47-year-old female who presents to the ED with abdominal pain unspecified, possible constipation related. Vitals are acceptable without any significant tachycardia, tachypnea, or hypoxia. PE is otherwise unremarkable. CBC, CMP, Lipase, Urinalysis and hCG are unremarkable for any acute pathology. CT unremarkable for acute process, but moderate stool present. Patient is nontoxic-appearing is tolerating p.o. without any difficulties. No other labs or imaging warranted at this time based on H&P. Low suspicion/risk for acute appendicitis, bowel obstruction, acute cholecystitis, acute cholangitis, perforated diverticulitis, incarcerated hernia , pancreatitis, perforated ulcer, peritonitis, sepsis, pelvic inflammatory disease, ectopic , tubo-ovarian abscess, ovarian torsion, or other systemic emergent condition at this time. Patient is aware that her condition can change from initial presentation and she needs to monitor symptoms closely and seek medical attention if any acute changes. I will send her home with prescription for mag citrate. Conservative measures otherwise for symptoms. Recheck with your PCM/OBGYN in 3-5 days. Return to the ED with any worsening/ concerning symptoms otherwise as reviewed in discharge. Patient is in agreement. - Vital Signs Vital signs: Temp Pulse Resp BP Pulse Ox 97.8 F 85 18 138/99 H 97 05/22/18 13:35 05/22/18 13:35 05/22/18 13:35 05/22/18 13:35 05/22/18 13:35 - Laboratory Result Diagrams: 05/22/18 15:39 05/22/18 15:39 Laboratory results interpreted by me: 05/22/18 05/22/18 15:02 15:39 Sodium 145.9 H Total Protein 8.5 H Urine Urobilinogen 4.0 H Discharge - Discharge Clinical Impression: Abdominal pain Qualifiers: Abdominal location: unspecified location Qualified Code(s): R10.9 - Unspecified abdominal pain Constipation Qualifiers: Constipation type: unspecified constipation type Qualified Code(s): K59.00 - Constipation, unspecified Condition: Stable Disposition: HOME, SELF-CARE Instructions: Abdominal Pain ([facility]), Constipation ([facility]), Observation for Appendicitis ([facility]) Additional Instructions: Maintain adequate fluid and food intake high fiber/water intake mag citrate as directed tylenol if needed Monitor for any worsening symptoms Make sure you are staying hydrated enough to urinate and have normal BM's Recheck with your PCM in 2-3 days Consider consult with Gastroenterology for ongoing/worsening symptoms Return to the ED with any worsening symptoms and/or development of fever, headache, chest pain, palpitations, syncope, shortness of breath, trouble breathing, abdominal pain, n/v/d, blood in stool/urine, weakness, or other worsening symptoms that are concerning to you. Prescriptions: Magnesium Citrate [Citrate of Magnesia 296 ml Bottle] 296 ml PO ONCE PRN #1 bottle PRN Reason: Forms: Elevated Blood Pressure Referrals: ARLYN ELLIS MD [ACTIVE STAFF] - Follow up as needed
[2018-05-22 15:53] LABS: ABSOLUTE BASOPHILS # (AUTO) 0.1 10^3/uL (0.0-0.2); ABSOLUTE EOSINOPHILS # (AUTO) 0.1 10^3/uL (0.0-0.6); ABSOLUTE LYMPHOCYTES (AUTO) 1.9 10^3/uL (0.5-4.7); ABSOLUTE MONOCYTES (AUTO) 0.8 10^3/uL (0.1-1.4); ABSOLUTE NEUT (AUTO) 5.5 10^3/uL (1.7-8.2); BASOPHILS % (AUTO) 0.8 % (0-2); EOSINOPHILS % (AUTO) 1.5 % (0-6); HEMATOCRIT 43.8 % (36.0-47.0); LYMPHOCYTES % (AUTO) 22.6 % (13-45); MEAN CORPUSCULAR HEMOGLOBIN 30.3 pg (27.0-33.4); MEAN CORPUSCULAR HGB CONC 34.3 g/dL (32.0-36.0); MEAN CORPUSCULAR VOLUME 88 fl (80-97); MONOCYTES % (AUTO) 9.6 % (3-13); PLATELET COUNT 260 10^3/uL (150-450); RED BLOOD COUNT 4.95 10^6/uL (3.72-5.28); RED CELL DISTRIBUTION WIDTH 12.4 % (11.5-14.0); SEGMENTED NEUTROPHILS % (AUTO) 65.5 % (42-78); TOTAL CELLS COUNTED % (AUTO) 100 %; WHITE BLOOD COUNT 8.4 10^3/uL (4.0-10.5)
[2018-05-22 16:09] LABS: ALANINE AMINOTRANSFERASE 25 U/L (9-52); ALBUMIN 4.5 g/dL (3.5-5.0); ALKALINE PHOSPHATASE 80 U/L (38-126); ANION GAP 12 (5-19); ASPARTATE AMINO TRANSFERASE 30 U/L (14-36); BILIRUBIN,DIRECT 0.3 mg/dL (0.0-0.4); BILIRUBIN,TOTAL 0.4 mg/dL (0.2-1.3); BLOOD UREA NITROGEN 10 mg/dL (7-20); CALCIUM 9.4 mg/dL (8.4-10.2); CARBON DIOXIDE 30 mmol/L (22-30); CHLORIDE 104 mmol/L (98-107); GLUCOSE 86 mg/dL (75-110); LIPASE 105.2 U/L (23-300); POTASSIUM 3.9 mmol/L (3.6-5.0); SODIUM 145.9 mmol/L (137-145); TOTAL PROTEIN 8.5 g/dL (6.3-8.2)
--- NOTE | 2018-05-22 16:11 | RADIOLOGY REPORT (SQ) ---
EXAM DESCRIPTION: CT ABD/PELVIS WITH IV ONLY COMPLETED DATE/TIME: 05/22/2018 3:51 pm REASON FOR STUDY: RLQ pain, some RUQ, pain near McBurney COMPARISON: None. TECHNIQUE: CT scan of the abdomen and pelvis performed using helical scanning technique with dynamic intravenous contrast injection. No oral contrast. Images reviewed with lung, soft tissue, and bone windows. Reconstructed coronal and sagittal MPR images reviewed. Delayed images for evaluation of the urinary system also acquired. All images stored on PACS. All CT scanners at this facility use dose modulation, iterative reconstruction, and/or weight based d osing when appropriate to reduce radiation dose to as low as reasonably achievable (ALARA). [facility]: Dose Right [facility]: CareDose [facility]: Dose Right [facility]: Teradose 4D [facility]: Circalit CONTRAST TYPE AND DOSE: contrast/concentration: Isovue 350.00 mg/ml; Total Contrast Delivered: 88.0 ml; Total Saline Delivered: 72.0 ml RENAL FUNCTION: None required patient below the age of 50. RADIATION DOSE: CT Rad equipment meets quality standard of care and radiation dose reduction techniq ues were employed. CTDIvol: 17.8 - 20.4 mGy. DLP: 2152 mGy-cm.. LIMITATIONS: None. FINDINGS: LOWER CHEST: No significant findings. No nodules or infiltrates. LIVER: Normal size. No masses. No dilated ducts. The hepatic and portal veins are patent. SPLEEN: Normal size. No focal lesions. PANCREAS: No masses. No significant calcifications. No adjacent inflammation or peripancreatic fluid collections. Pancreatic duct not dilated. GALLBLADDER: The gallbladder has a somewhat contracted appearance. ADRENAL GLANDS: No significant masses or asymmetry. RIGHT KIDNEY AND URETER: No solid masses. No significant calcifications. No hydronephrosis or hyd roureter. LEFT KIDNEY AND URETER: No solid masses. No significant calcifications. No hydronephrosis or hydr oureter. AORTA AND VESSELS: No aneurysm. No dissection. Renal arteries, SMA, celiac without stenosis. RETROPERITONEUM: No retroperitoneal adenopathy, hemorrhage or masses. BOWEL AND PERITONEAL CAVITY: No masses or inflammatory changes. No free fluid or peritoneal masses. APPENDIX: The visualized appendix is unremarkable in appearance by CT examination. PELVIS: Prior hysterectomy. No mass. No free fluid. Normal bladder. ABDOMINAL WALL: A small fat containing jennifer-umbilical hernia. BONES: No significant or acute findings. OTHER: No other significant finding. IMPRESSION: 1. NO SIGNIFICANT OR ACUTE FINDING IN THE ABDOMEN OR PELVIS. 2. The visualized appendix is unremarkable in appearance by CT examination. 3. A small fat containing jennifer-umbilical hernia. TECHNICAL DOCUMENTATION: JOB ID: [id number] Quality ID # [id number]: Final reports with documentation of one or more dose reduction techniques (e.g., Au tomated exposure control, adjustment of the mA and/or kV according to patient size, use of iterative reconstruction technique) 2010 [employer]- All Rights Reserved Reading location - IP/workstation name: [email or web address]
[2018-05-22 16:25] LABS: APPEARANCE,URINE CLEAR; BILIRUBIN,URINE NEGATIVE (NEGATIVE); COLOR,URINE YELLOW; GLUCOSE, URINE NEGATIVE (NEGATIVE); KETONES,URINE NEGATIVE (NEGATIVE); LEUKOCYTE ESTERASE,URINE NEGATIVE (NEGATIVE); NITRITE,URINE NEGATIVE (NEGATIVE); PROTEIN,URINE NEGATIVE (NEGATIVE); URINE SPECIFIC GRAVITY 1.023
== END 2018-05-22 16:54 | disposition home or self-care (01) ==
LOC: ER 13:14
DX: K59.00 Constipation, unspecified (principal); R10.9 Unspecified abdominal pain; R10.811 Right upper quadrant abdominal tenderness; Z90.710 Acquired absence of both cervix and uterus
CPT/HCPCS: 36415; 74177; 80053; 81001; 81025; 83690; 85025; 99284

== ENCOUNTER → 2018-07-24 | Outpatient (CLI) | payer BC ==
--- NOTE | 2018-07-24 11:01 | WOMENS IMAGING REPORT ---
EXAM DESCRIPTION: U/S ABDOMEN LIMITED COMPLETED DATE/TIME: 07/24/2018 10:48 am REASON FOR STUDY: R10.816, ABDOMINAL TENDERNESS EPIGASTRIC, R10.11 RIGHT UPPER QUADRANT PAIN R10.816 EPIGASTRIC ABDOMINAL TENDERNESS R10.11 RIGHT UPPER QUADRANT PAIN COMPARISON: None. TECHNIQUE: Dynamic and static grayscale images acquired of the abdomen and recorded on PACS. Additio nal selected color Doppler and spectral images recorded. LIMITATIONS: None. FINDINGS: PANCREAS: No masses. No peripancreatic edema or fluid collections. LIVER: Echotexture is coarse with increased echogenicity consistent with fatty infiltration. LIVER VASCULATURE: Normal directional flow of the main portal vein and hepatic veins. GALLBLADDER: No stones. Normal wall thickness. No pericholecystic fluid. ULTRASOUND-DETECTED VALENCIA'S SIGN: Negative. INTRAHEPATIC DUCTS AND COMMON DUCT: CBD and intrahepatic ducts normal caliber. No filling defects. INFERIOR VENA CAVA: Normal flow. AORTA: No aneurysm. RIGHT KIDNEY: Normal size. Normal echogenicity. No solid or suspicious masses. No hydronephros is. No calcifications. PERITONEAL AND RIGHT PLEURAL SPACE: No ascites or effusions. OTHER: No other significant finding. IMPRESSION: Fatty liver. No acute findings. TECHNICAL DOCUMENTATION: JOB ID: [id number] [employer]- All Rights Reserved Reading location - IP/workstation name: [email or web address]
== END ==
LOC: WI 10:14
PROVIDERS: ATTEND Internal Medicine Gastroenterology
DX: K76.0 Fatty (change of) liver, not elsewhere classified (principal); R10.11 Right upper quadrant pain; R10.816 Epigastric abdominal tenderness
CPT/HCPCS: 76705

== ENCOUNTER 2018-09-10 21:23 | Emergency (ER) | payer BC | END 2018-09-10 21:36 | disposition left against medical advice (07) | LOC: ER 21:23 | DX: Z53.21 Procedure and treatment not carried out due to patient leaving prior to being seen by health care provider (principal); R51 Headache ==

== ENCOUNTER 2018-09-11 15:50 | Emergency (ER) | payer BC ==
[2018-09-11 16:08] VITALS: BP 155/109
[2018-09-11] MEDS ORDERED: KETOROLAC TROMETHAMINE 60 MG/2 ML SDV IM ONE (17:12)
[2018-09-11] MEDS ORDERED: DIPHENHYDRAMINE HCL 25 MG CAPSULE PO ONE (17:12)
--- NOTE | 2018-09-11 17:14 | ER Document Report ---
ED Medical Screen (RME) - General Chief Complaint: Headache Stated Complaint: HEADACHE Time Seen by Provider: 09/11/18 17:09 Primary Care Provider: JAZZ WATTS MD [Primary Care Provider] - Follow up as needed Mode of Arrival: Ambulatory Information source: Patient Notes: Patient presents emergency department with complaints of migraine for the past 5 days. She reports is typical migraine. Right side of her face. She reports she is sensitive to light smells noise. Patient reports she is been diagnosed by for migraines by Dr. Resendiz. He gave her some medication for it but she is out of the medication. I have greeted and performed a rapid initial assessment of this patient. A comprehensive ED assessment and evaluation of the patient, analysis of test results and completion of the medical decision making process will be conducted by additional ED providers. TRAVEL OUTSIDE OF THE [place] IN LAST 30 DAYS: No - Related Data Allergies/Adverse Reactions: No Known Allergies Allergy (Verified 09/11/18 17:08) Past Medical History - Social History Frequency of alcohol use: None Drug Abuse: None Pulmonary Medical History: Denies: Hx Tuberculosis Neurological Medical History: Reports: Hx Migraine Renal/ Medical History: Denies: Hx Ovarian Cysts, Hx Peritoneal Dialysis, Hx Pelvic Inflammatory Disease Malignancy Medical History: Denies: Hx Breast Cancer, Hx Cervical Cancer, Hx Leukemia, Hx Ovarian Cancer Infectious Medical History: Denies: Hx HIV Past Surgical History: Reports: Hx Section - X3, Hx Hysterectomy. Denies: Hx Appendectomy, Hx Bowel Surgery, Hx Cholecystectomy, Hx Coronary Artery Bypass Graft, Hx Gastric Bypass Surgery, Hx Herniorrhaphy, Hx Mastectomy, Hx Pacemaker, Hx Tonsillectomy, Hx Tubal Ligation Physical Exam - Vital signs Vitals: Temp Pulse Resp BP Pulse Ox 98.4 F 90 17 155/109 H 100 09/11/18 16:06 09/11/18 16:06 09/11/18 16:06 09/11/18 16:06 09/11/18 16:06 Course - Vital Signs Vital signs: Temp Pulse Resp BP Pulse Ox 98.4 F 90 17 155/109 H 100 09/11/18 16:06 09/11/18 16:06 09/11/18 16:06 09/11/18 16:06 09/11/18 16:06 Doctor's Discharge - Discharge Referrals: JAZZ WATTS MD [Primary Care Provider] - Follow up as needed
[2018-09-11] MEDS ORDERED: BUTALB/ACETAMINOPHEN/CAFFEINE 1 TAB EACH PO ONE (20:22)
--- NOTE | 2018-09-11 20:27 | ER Document Report ---
ED General - General Chief Complaint: Headache Stated Complaint: HEADACHE Time Seen by Provider: 09/11/18 17:09 Primary Care Provider: JAZZ WATTS MD [Primary Care Provider] - Follow up as needed Mode of Arrival: Ambulatory Notes: Patient is a 47-year-old female who presents with chief complaint of headache. Patient reports she has a history of migraines, states this headache started approximately 5 days ago and feels similar to a typical migraine. She reports mild nausea without vomiting. States that she usually takes Fioricet for severe headaches, states she has run out of her medication. TRAVEL OUTSIDE OF THE [place] IN LAST 30 DAYS: No - Related Data Allergies/Adverse Reactions: No Known Allergies Allergy (Verified 09/11/18 17:08) Past Medical History - General Information source: Patient - Social History Smoking Status: Never Smoker Frequency of alcohol use: None Drug Abuse: None Family History: Reviewed & Not Pertinent Patient has suicidal ideation: No Patient has homicidal ideation: No Pulmonary Medical History: Denies: Hx Tuberculosis Neurological Medical History: Reports: Hx Migraine Renal/ Medical History: Denies: Hx Ovarian Cysts, Hx Peritoneal Dialysis, Hx Pelvic Inflammatory Disease Malignancy Medical History: Denies: Hx Breast Cancer, Hx Cervical Cancer, Hx Leukemia, Hx Ovarian Cancer Infectious Medical History: Denies: Hx HIV Past Surgical History: Reports: Hx Section - X3, Hx Hysterectomy. Denies: Hx Appendectomy, Hx Bowel Surgery, Hx Cholecystectomy, Hx Coronary Artery Bypass Graft, Hx Gastric Bypass Surgery, Hx Herniorrhaphy, Hx Mastectomy, Hx Pacemaker, Hx Tonsillectomy, Hx Tubal Ligation - Immunizations Hx Pneumococcal Vaccination: 06/27/00 Review of Systems - Review of Systems Constitutional: No symptoms reported EENT: No symptoms reported Cardiovascular: No symptoms reported Respiratory: No symptoms reported Gastrointestinal: No symptoms reported Genitourinary: No symptoms reported Female Genitourinary: No symptoms reported Musculoskeletal: No symptoms reported Skin: No symptoms reported Hematologic/Lymphatic: Other - Headaches Neurological/Psychological: No symptoms reported Physical Exam - Vital signs Vitals: Temp Pulse Resp BP Pulse Ox 98.4 F 90 17 155/109 H 100 09/11/18 16:06 09/11/18 16:06 09/11/18 16:06 09/11/18 16:06 09/11/18 16:06 - Notes Notes: PHYSICAL EXAMINATION: GENERAL: Well-appearing, well-nourished and in no acute distress. HEAD: Atraumatic, normocephalic. EYES: Pupils equal round extraocular movements intact, conjunctiva are normal. ENT: Nares patent NECK: Normal range of motion LUNGS: No respiratory distress Musculoskeletal: Normal range of motion NEUROLOGICAL: Normal speech, normal gait. PSYCH: Normal mood, normal affect. SKIN: Warm, Dry, normal turgor, no rashes or lesions noted. Course - Re-evaluation Re-evalutation: Patient reports pain went from 5/5 down to 1/5 after administration of medications here in the emergency department. Patient will be discharged home, prescription will be provided for Fioricet. Close follow-up with her primary care. - Vital Signs Vital signs: Temp Pulse Resp BP Pulse Ox 98.4 F 90 17 155/109 H 100 09/11/18 16:06 09/11/18 16:06 09/11/18 16:06 09/11/18 16:06 09/11/18 16:06 Discharge - Discharge Clinical Impression: Migraine Qualifiers: Migraine type: other Status migrainosus presence: without status migrainosus Intractability: not intractable Qualified Code(s): G43.809 - Other migraine, not intractable, without status migrainosus Condition: Stable Disposition: HOME, SELF-CARE Additional Instructions: Migraine Headache The physician feels that your symptoms are due to a migraine attack. Migraines are caused by changes in the blood vessels of the head. Arteries go into spasm, often causing warning symptoms that a headache may begin soon. As the spasm goes away, the vessels dilate and throb, causing the pounding pain of a migraine headache. Migraines often cause nausea and vomiting. The treatment of headaches varies with severity and cause of pain. Not all headaches need pain shots -- in fact, there is evidence that using narcotics for headaches may make them worse in the long run. The physician will determine the therapy that's in your best interest for this particular headache. Medications are available that may prevent migraines, or stop them as they first occur. If one medication is not helpful, try another. If migraines are frequent, be patient -- follow the doctor's recommendations. Call the physician if you are worsening, or if new symptoms arise. Prescriptions: Butalb/Acetaminophen/Caffeine [Fioricet (50-325-40 mg) Tablet] 1 tab PO Q4HP PRN #15 tab PRN Reason: Referrals: JAZZ WATTS MD [Primary Care Provider] - Follow up as needed
== END 2018-09-11 20:46 | disposition home or self-care (01) ==
LOC: ER 15:50
DX: G43.809 Other migraine, not intractable, without status migrainosus (principal); R11.0 Nausea; Z79.899 Other long term (current) drug therapy
CPT/HCPCS: 99283; 96372; J3490; J1885

== ENCOUNTER 2019-05-10 22:47 | Emergency (ER) | payer SELFPAY ==
--- NOTE | 2019-05-11 04:51 | ER Document Report ---
ED General - General Chief Complaint: Toothache Stated Complaint: POSSIBLE ABSCESS ON FACE Time Seen by Provider: 05/11/19 04:51 Primary Care Provider: JAZZ WATTS MD [Primary Care Provider] - Follow up as needed TRAVEL OUTSIDE OF THE [place] IN LAST 30 DAYS: No - HPI Patient complains to provider of: dental pain Notes: 48 y/o presenting to ED for evaluation of left sided dental pain and facial swelling worsening over 2 days no fever or chills she knows she has a bad tooth but has not had it addressed by dentist no difficulty swallowing or speaking - Related Data Allergies/Adverse Reactions: No Known Allergies Allergy (Verified 09/11/18 17:08) Home Medications: ibuprofen prn Past Medical History - Social History Smoking Status: Never Smoker Family History: Reviewed & Not Pertinent Patient has suicidal ideation: No Patient has homicidal ideation: No Pulmonary Medical History: Denies: Hx Tuberculosis Neurological Medical History: Reports: Hx Migraine Renal/ Medical History: Denies: Hx Ovarian Cysts, Hx Peritoneal Dialysis, Hx Pelvic Inflammatory Disease Malignancy Medical History: Denies: Hx Breast Cancer, Hx Cervical Cancer, Hx Leukemia, Hx Ovarian Cancer Infectious Medical History: Denies: Hx HIV Past Surgical History: Reports: Hx Section - X3, Hx Hysterectomy. Denies: Hx Appendectomy, Hx Bowel Surgery, Hx Cholecystectomy, Hx Coronary Artery Bypass Graft, Hx Gastric Bypass Surgery, Hx Herniorrhaphy, Hx Mastectomy, Hx Pacemaker, Hx Tonsillectomy, Hx Tubal Ligation - Immunizations Hx Pneumococcal Vaccination: 06/27/00 Review of Systems - Review of Systems Constitutional: No symptoms reported EENT: Dental problem Cardiovascular: No symptoms reported Respiratory: No symptoms reported Gastrointestinal: No symptoms reported Genitourinary: No symptoms reported Female Genitourinary: No symptoms reported Musculoskeletal: No symptoms reported Skin: No symptoms reported Hematologic/Lymphatic: No symptoms reported Neurological/Psychological: No symptoms reported Physical Exam - Vital signs Vitals: Temp Pulse Resp BP Pulse Ox 98.3 F 90 20 148/102 H 100 05/10/19 23:02 05/10/19 23:02 05/10/19 23:02 05/10/19 23:02 05/10/19 23:02 Interpretation: Normal - General General appearance: Appears well, Alert - HEENT Head: Normocephalic, Atraumatic Eyes: Normal Pupils: PERRL Mucous membranes: Normal Teeth diagram: 1 - gumline erythema, cracked teeth Pharynx: Normal Neck: Normal - Respiratory Respiratory status: No respiratory distress Chest status: Nontender Breath sounds: Normal Chest palpation: Normal - Cardiovascular Rhythm: Regular Heart sounds: Normal auscultation Murmur: No - Abdominal Inspection: Normal Distension: No distension Bowel sounds: Normal Tenderness: Nontender Organomegaly: No organomegaly - Back Back: Normal, Nontender - Extremities General upper extremity: Normal inspection, Nontender, Normal color, Normal ROM, Normal temperature General lower extremity: Normal inspection, Nontender, Normal color, Normal ROM, Normal temperature, Normal weight bearing. No: Joseph's sign - Neurological Neuro grossly intact: Yes Cognition: Normal Orientation: AAOx4 [place] Coma Scale Eye Opening: Spontaneous [place] Coma Scale Verbal: Oriented [place] Coma Scale Motor: Obeys Commands [place] Coma Scale Total: 15 Speech: Normal Motor strength normal: LUE, RUE, LLE, RLE Sensory: Normal - Psychological Associated symptoms: Normal affect, Normal mood - Skin Skin Temperature: Warm Skin Moisture: Dry Skin Color: Normal Course - Re-evaluation Re-evalutation: 05/11/19 05:01 amoxil for dental infection encouraged dental follow up - Vital Signs Vital signs: Temp Pulse Resp BP Pulse Ox 99.4 F 95 20 153/105 H 99 05/11/19 02:35 05/11/19 02:35 05/11/19 02:35 05/11/19 02:35 05/11/19 02:35 Discharge - Discharge Clinical Impression: Dental infection, Elevated blood pressure reading Condition: Stable Disposition: HOME, SELF-CARE Instructions: Toothache ([facility]) Additional Instructions: follow up with dentist return to ED with worsening take antibiotic as directed Prescriptions: Amoxicillin 1 tab PO TID #30 tab Forms: Elevated Blood Pressure Referrals: JAZZ WATTS MD [Primary Care Provider] - Follow up as needed
[2019-05-11] MEDS ORDERED: HYDROCODONE/ACETAMINOPHEN 5-325 MG TABLET PO ONE (04:59)
[2019-05-11] MEDS ORDERED: AMOXICILLIN TRIHYDRATE 500 MG CAPSULE PO ONE (04:59)
[2019-05-11 05:34] VITALS: BP 150/96
== END 2019-05-11 05:33 | disposition home or self-care (01) ==
LOC: ER 22:47
DX: K04.7 Periapical abscess without sinus (principal); K08.89 Other specified disorders of teeth and supporting structures; R03.0 Elevated blood-pressure reading, without diagnosis of hypertension